=== PATIENT | female | born 1950 | race Caucasian/White ===

== ENCOUNTER 2018-08-16 09:44 | Outpatient (CLI) | payer MEDICARE, BC, SELFPAY ==
[2018-08-16 11:33] LABS: ALT 23 U/L (12-78); AST 22 U/L (15-37); Albumin 3.8 g/dL (3.4-5.0); Alkaline Phosphatase 77 U/L (46-116); Anion Gap 4.3 mmol/L (3-11); BUN 18 mg/dL (7-18); Bilirubin, Total 0.5 mg/dL (0.2-1.0); CO2 33.7 mmol/L (21.0-32.0); CREATININE 0.92 mg/dL (0.55-1.02); Calculated LDL 146; Chloride 102 mmol/L (98-107); Cholesterol 207 mg/dL (50-200); Glucose 92 mg/dL (70-100); HDL Cholesterol 49 mg/dL (40-60); Potassium 4.1 mmol/L (3.5-5.1); Sodium 140 mmol/L (136-145); Total Protein 7.3 g/dL (6.4-8.2); Triglyceride 60 mg/dL (30-150)
== END 2018-08-16 10:04 ==
DX: E78.5 Hyperlipidemia, unspecified (principal); I10 Essential (primary) hypertension
CPT/HCPCS: 36415; 80053; 80061; 83721

== ENCOUNTER 2018-10-29 21:04 | Emergency (ER) | payer MEDICARE, BC, SELFPAY ==
[2018-10-29] VITALS (11 sets, daily range): BP systolic 150–184; BP diastolic 68–89; PULSE 69–104; RESP 9–18; TEMP 36.8–36.9; O2SAT 91–99
--- NOTE | 2018-10-29 21:27 | DI.CT_ITS ---
SYMPTOM/DIAGNOSIS: ALTERED MENTAL STATUS NONCONTRAST HEAD CT: No priors. The ventricles and sulci are consistent with the patient's age. No acute territorial infarct, hemorrhage, midline shift or mass is identified. The ventricles are intact. The basilar cisterns are patent. The visualized paranasal sinuses are clear as are the mastoid air cells. The calvarium is intact. IMPRESSION: No acute intracranial process.
--- NOTE | 2018-10-29 21:31 | ED.GENADUL_ITS ---
Discharge Plan Disposition Patient Disposition: HOME Condition: Stable Discharge Details Chief Complaint: GenMedical Clinical Impression: Acute hypokalemia, Hypertension Primary Care Provider: Lily Mccullough ED Provider: Lewis Garber Home Meds and New Rx's Prescriptions: New potassium chloride 20 mEq tablet extended release 20 meq PO BID 3 Days Qty: 6 RF: 0 Continued hydrochlorothiazide 25 mg tablet 25 mg PO DAILY 90 Days Qty: 90 RF: 4 atenolol 50 mg tablet 75 mg PO DAILY Qty: 135 RF: 4 cholecalciferol (vitamin D3) 1,000 UNIT capsule 1,000 unit PO daily prn RF: 0 calcium carbonate-vitamin D3 1 EACH tablet 1 ea PO DAILY PRN RF: 0 ascorbic acid (vitamin C) [Vitamin C] 500 MG tablet 1,000 mg PO daily prn RF: 0 omega 1-nhb-azm-fish oil 1 EACH capsule 1 ea PO DAILY RF: 0 ibuprofen 600 MG tablet 600 mg PO TID Qty: 90 RF: 0 acetaminophen [Masophen] 500 MG tablet 1,000 mg PO Q8H PRN PRNQty: 120 RF: 0 Discharge Instructions Instructions: Hypokalemia (ED), Hypertension (ED) Additional Instructions: Return immediately to the emergency department for any new or significant worsening of symptoms. Otherwise it is important that you follow-up with your primary care provider preferably next 2 to 3 days for reassessment and recheck of your labs. Please take medications as prescribed. Referrals: Lily Mccullough, [employer] [Primary Care Provider] - 2 days (For recheck of labs, further testing, and reassessment as needed) Discharge Data Discharge Date/Time-TO BE ENTERED AT DEPARTURE: 10/29/18 23:53 Medical Decision Making Patient presenting to the emergency department for chief complaint of altered mental status. Patient states approximately 11 hours prior to arrival she was at work and had a difficult time figuring out a task that she normally does on a daily basis. She states that it took 2 to 3 minutes for her to figure out how to perform the task but she is able to figure this out without any additional assistance. Patient does state that she felt off the remainder of the day but denies any specific other incident. Patient denies any numbness or tingling, focal neurological deficits, denies headache. Patient does report occasional palpitations and history of mitral regurg, hypertension, borderline hyperlipidemia. Patient also does report white coat syndrome and some anxiety. Both of these were also noted by primary care provider on medical record. Patient has mildly hypertensive and tachycardic upon presentation otherwise stable vital signs. Physical exam is unremarkable and shows normal neurological exam, no focal deficits or findings noted. Plan to check labs including urinalysis, EKG for report of palpitations, and head CT for patient feeling neurologically off. Otherwise given that patient denies focal symptoms at this time and is vague do not feel that any emergent treatments are needed at this time. EKG reviewed with attending physician and shows sinus rhythm, rate of 79, mild rate variation but otherwise nonspecific ST depression noted in V3, V4, V5, and V6. Patient denies any chest pain or discomfort. Review of labs show a normal CBC, CMP with potassium of 2.6 and glucose of 111 otherwise nondiagnostic, UA does show moderate amount of blood and trace leukocyte esterase with 20-50 RBCs. Lab reflex culture due to amount of RBCs. Patient states asymptomatic as far as any urinary tract symptoms. Plan to wait on culture. Patient does state that she has had blood in her urine in the past that primary care is been monitoring. Patient denies any recent nausea vomiting diarrhea, food or dietary changes, changes in any of her medications, or rapid fluid loss. She does with further questioning reports some mild muscle cramping specifically in her right foot. I do feel the low potassium may be contributing to some of her symptoms. Given that there is otherwise negative head CT and no other neurological symptoms noted I do not feel that any further work-up for that is needed. Plan to give IV potassium 10 mEq and then p.o. potassium 40 mEq if patient continues to remain stable. Patient was able to tolerate p.o. potassium. Given that patient is otherwise stable I do feel the patient is able to be safely discharged. Patient placed up on p.o. potassium 20 mEq twice daily for the next 2 days and patient placed upon primary care follow-up list. Given that patient is hypertensive, has unclear etiology of hypokalemia and blood in her urine one consideration is primary aldosteronism. I feel that this can be further investigated by primary care and does not need any emergent work-up. Patient has no CVA tenderness denies any pain or discomfort. Return precautions were discussed. After discussion of diagnosis and plan of care patient has no further needs, questions, or concerns and states clear understanding to return to the emergency department for any worsening symptoms. HPI General Mode of arrival: ambulatory . Date/Time Provider Initiated Documentation: 10/29/18 21:06 . Limitations to Documentation: no limitations . Information obtained by: patient and RN notes reviewed . HPI Narrative: Patient presenting the emergency department for chief complaint of altered mental status or mental fog. She states that she had episode this morning around 10 AM that lasted approximately 2 to 3 minutes where she could not figure out how to do 1 of her normal task. She was able to figure out the rest the day felt off mentally. Patient denies pain or discomfort, progressive symptoms, states no treatment prior to arrival, states no relieving or exacerbating factors Related Data Home Medications Medication Instructions Recorded Confirmed ascorbic acid (vitamin C) [Vitamin 1,000 mg PO daily prn 10/07/12 10/30/18 C] calcium carbonate-vitamin D3 1 ea PO DAILY PRN 10/07/12 10/30/18 cholecalciferol (vitamin D3) 1,000 unit PO daily prn 10/07/12 10/30/18 omega 7-ygt-jcn-fish oil 1 ea PO DAILY 06/01/16 10/30/18 acetaminophen [Masophen] 1,000 mg PO Q8H PRN PRN #120 tab 07/20/16 10/30/18 ibuprofen 600 mg PO TID #90 tab 07/20/16 10/30/18 atenolol 50 mg tablet 75 mg PO DAILY #135 tab-cap 07/30/18 10/30/18 hydrochlorothiazide 25 mg tablet 25 mg PO DAILY 90 Days #90 tab 07/30/18 10/30/18 potassium chloride 20 meq PO BID 3 Days #6 tab 10/29/18 10/30/18 Previous Rx's Medication Instructions Recorded acetaminophen [Masophen] 1,000 mg PO Q8H PRN PRN #120 tab 07/20/16 ibuprofen 600 mg PO TID #90 tab 07/20/16 atenolol 50 mg tablet 75 mg PO DAILY #135 tab-cap 07/30/18 hydrochlorothiazide 25 mg tablet 25 mg PO DAILY 90 Days #90 tab 07/30/18 potassium chloride 20 meq PO BID 3 Days #6 tab 10/29/18 Allergies Allergy/AdvReac Type Severity Reaction Status Date / Time No Known Allergies Allergy Verified 10/30/18 13:49 General Stated Complaint: GenMedical SHLOMO: 3 Review of Systems Constitutional Denies body ache(s), Denies chills, Denies fever(s), Denies frequent falls, Denies headache(s), Denies lethargy, Denies malaise and Denies weakness Eyes Denies change in vision ENT Denies dizziness and Denies headache(s) Cardiovascular Denies chest pain, Denies syncope, Reports palpitations (Occasional and intermittent) and Denies dyspnea Respiratory Denies dyspnea Gastrointestinal Denies nausea and Denies vomiting Neurologic Reports as per HPI, Denies dizziness, Denies syncope, Denies frequent falls, Denies headache(s), Denies sensory deficit and Denies weakness Endocrine Reports palpitations (Occasional and intermittent) [facility] Medical History Actinic keratosis (Chronic 11/02/15) Anxiety (Acute) induced by office visits Breast lump (Chronic) Digital mucous cyst (Resolved 06/26/16) Diverticula of colon (Chronic 08/10/14) Essential hypertension (Chronic 04/11/13) white coat hypertension Microscopic hematuria (Chronic 04/11/13) Mitral valve prolapse (Chronic 04/11/13) Osteopenia (Chronic 04/11/13) Pap smear abnormality of cervix (Resolved 04/11/13) Surgical History Cervical Conization/LEEP (~1978) Cystoscopy (~2001) Status post cystoscopy (Resolved) Status post LEEP (loop electrosurgical excision procedure) of cervix (Resolved) Family History Mother , 86 Diabetes Heart disease CHF (congestive heart failure) Stroke Macular degeneration Father Essential hypertension Hyperlipidemia Heart disease valve replacement Prostate cancer Sister Essential hypertension Hyperlipidemia Sister Hyperlipidemia Maternal Grandfather , 66 Lung cancer Paternal Grandfather , 54 Essential hypertension Heart disease Hyperlipidemia Maternal Grandmother , 86 Macular degeneration Colon cancer Paternal Grandmother , 65 Uterine cancer Son Essential hypertension Daughter No problems noted. Grand daughter Leukemia Social History Smoking/Tobacco Use Status: Never Alcohol Intake: current Alcohol Intake frequency: holidays/special occasions only Alcohol type: wine Drug use: Never Substance use type: does not use Caregiver/Support person: No Household members: spouse Housing: house Communication Needs: None Do you need help understanding health information?: Rarely Pets and animals: No Sexually active: Yes Do you think of yourself as: straight/heterosexual Current gender identity: female What is your relationship status?: How often do you talk on the phone with friends or family?: three or more times per week How often do you get together with friends or relatives?: decline to answer How often do you attend rastafari or hinduism services?: decline to answer Do you belong to any clubs or organized social groups?: no Panel score (0-1 are the most socially isolated patients): 2 What type of physical activity do you participate in: walking and swimming Duration: 30-45 minutes/day Frequency: 3-4 times per week Ayse/Baptism: Orthodox Special ayse needs: No Seatbelt use: always Helmet use: No Drive 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 Exam Const General: cooperative, healthy appearing, no acute distress and well groomed Orientation: alert, awake and oriented x3 HENMT Head: normal to inspection Ears: hearing grossly normal bilaterally and TM's normal bilaterally Mouth: oral mucosae normal and moist mucous membranes Throat: posterior oropharynx normal and uvula midline Eyes Visual Hou: normal visual hou by confrontation Alignment and Position: alignment normal Periorbital: periorbital findings normal Eyelids: eyelids normal Sclera: sclerae normal Cornea: corneas normal Pupils: PERRL EOM: EOM intact bilaterally Neck Neck: normal visual inspection, full ROM, no lymphadenopathy and no meningeal signs Resp Effort & Inspection: normal respiratory effort and able to speak in complete sentences Auscultation: clear to auscultation bilaterally Cardio Rate: regular rate Rhythm: regular rhythm Heart Sounds: S1 normal, S2 normal, no click, no gallops, no murmurs and no rubs Back/Spine/Pelvis Back: no CVA tenderness Cervical Spine: cervical ROM normal Neuro General: alert, awake, oriented x3, gait normal, tone normal, moves all extremities, normal light touch, pain and propioception, no meningeal signs, no focal motor deficits, CN's II-XI intact bilaterally and not confused Cognition: normal cognition Speech: speech normal Gait: normal gait Motor: muscle tone normal throughout, strength 5/5 throughout, no pronator drift, no movement abnormalities noted and no fasciculations Sensory Exam: no sensory deficits noted Coordination: [id number] test normal, Romberg test normal, Does not sway with eyes open and rapid alternating movement UE normal Course Vital Signs Temperature 36.8 C 10/29/18 21:08 Pulse 104 H 10/29/18 21:08 Respiratory Rate 18 10/29/18 21:08 Blood Pressure 184/89 H 10/29/18 21:08 Pulse Oximetry 99 10/29/18 21:08 Temperature 36.8 C 10/29/18 21:08 Temperature Source Skin 10/29/18 21:08 Pulse 104 H 10/29/18 21:08 Respiratory Rate 18 10/29/18 21:08 Blood Pressure 184/89 H 10/29/18 21:08 Blood Pressure Position Sitting 10/29/18 21:08 Pulse Oximetry 99 10/29/18 21:08 Oxygen Delivery Method Room Air 10/29/18 21:08 Oxygen Flow Rate 0 10/29/18 21:08 Pain Level 0 10/29/18 21:08
[2018-10-29 21:44] LABS: Bilirubin Negative (Negative); Blood Moderate (Negative); Clarity Clear (Clear); Glucose Negative (Negative); Ketones Negative (Negative); Leukocyte Esterase Trace (Negative); Nitrite Negative (Negative); Urobilinogen 0.2 EU/dL (Up TO 0.2); pH 6.5 (5-8)
[2018-10-29 21:58] LABS: Bacteria Rare HPF (Negative); Casts Negative LPF (Negative); Crystals Negative HPF (Negative); Epithelial Cells Rare HPF (Negative); Mucus Negative (Negative); Other Cells Rare Transitional (Negative); RBC 20-50 (0-2); WBC 0-2 HPF (0-5)
[2018-10-29 21:59] LABS: C & S Indicated? Yes
[2018-10-29 21:59] LABS: Abs Immature Grans 0.01 k/cumm (0.0-0.09); Absolute Basophil Count 0.01 k/cumm (0.0-0.2); Absolute Eosinophil Count 0.02 k/cumm (0.0-0.7); Absolute Lymphocyte Count 1.74 k/cumm (1.2-3.4); Absolute Monocyte Count 0.72 k/cumm (0.11-0.7); Absolute Neutrophil Count 5.61 k/cumm (1.2-6.7); Basophils % 0.1; Eosinophils % 0.2; HCT 36.6 % (36.0-46.0); HGB 12.4 g/dL (12.0-15.5); Immature Grans % 0.1; Lymphocytes % 21.5; Mean Corp. HGB Concentration 33.9 g/dL (32.0-36.0); Mean Corpuscular Hemoglobin 30.8 pg (27.0-33.0); Mean Corpuscular Volume 90.8 fL (80-95); Mean Platelet Volume 9.2 fL (8.0-11.0); Monocytes % 8.9; Neutrophils % 69.2; Platelet Count 304 x1000/uL (130-400); RBC 4.03 m/cumm (4.00-5.20); RBC Distribution Width 13.2 % (11.7-14.6); White Blood Cell Count 8.11 k/cumm (4.4-10.8)
[2018-10-29 22:18] LABS: ALT 23 U/L (14-59); AST 23 U/L (15-37); Albumin 3.9 g/dL (3.4-5.0); Alkaline Phosphatase 70 U/L (46-116); Anion Gap 9.5 mmol/L (3-11); BUN 11 mg/dL (7-18); Bilirubin, Total 0.3 mg/dL (0.2-1.0); CO2 29.5 mmol/L (21.0-32.0); CREATININE 0.88 mg/dL (0.55-1.02); Chloride 103 mmol/L (98-107); Glucose 111 mg/dL (70-100); Magnesium 1.8 mg/dL (1.8-2.4); Sodium 142 mmol/L (136-145); Total Protein 7.7 g/dL (6.4-8.2)
--- NOTE | 2018-10-29 22:19 | DI.VRAD_ITS ---
EXAM: CT Head Without Contrast EXAM DATE/TIME: 10/29/2018 9:31 PM CLINICAL HISTORY: 68 years old, female; Altered mental status/memory loss; Confusion or disorientation TECHNIQUE: Imaging protocol: Computed tomography images of the head without contrast. Radiation optimization: All CT scans at this facility use at least one of these dose optimization techniques: automated exposure control; mA and/or kV adjustment per patient size (includes targeted exams where dose is matched to clinical indication); or iterative reconstruction. COMPARISON: No relevant prior studies available. FINDINGS: Brain: No acute intracranial hemorrhage. There is mild diffuse heterogeneity of the white matter attenuation, consistent with chronic white matter ischemic changes. Mild cerebral atrophy Ventricles: Normal. No ventriculomegaly. Bones/joints: Unremarkable. No acute fracture. Sinuses: Visualized sinuses are unremarkable. No fluid levels. Mastoid air cells: Visualized mastoid air cells are well aerated. No mastoid effusion. Soft tissues: Unremarkable. IMPRESSION: No acute intracranial hemorrhage. Dictated and Authenticated by: Lola Driscoll MD. Ordering:ANSHU Saucedo MD
[2018-10-29 22:26] LABS: Potassium 2.6 mmol/L (3.5-5.1)
[2018-10-29] MEDS: POTASSIUM CHLORIDE 10 MEQ/100 ML BAG 100 MEQ IVPB (22:37)
[2018-10-29] MEDS: Normal Saline Flush 10 ML SYR IVP (22:37)
[2018-10-29] MEDS: Potassium Chloride 10 MEQ CAPCR 40 MEQ PO (23:07)
== END 2018-10-29 23:53 | disposition home or self-care (01) ==
PROVIDERS: Emergency Provider Nurse Practitioner Family
DX: E87.6 Hypokalemia (principal); I10 Essential (primary) hypertension; F41.9 Anxiety disorder, unspecified; R00.2 Palpitations; R41.82 Altered mental status, unspecified
CPT/HCPCS: 36415; 80053; 93005; 96365; 99285; 70450; 81003; 81015; 83735; 85025; 87086; 93010; J3480

== ENCOUNTER 2018-11-01 02:42 | Outpatient (CLI) | payer MEDICARE, BC, SELFPAY ==
[2018-11-01 12:46] LABS: Anion Gap 8.9 mmol/L (3-11); BUN 18 mg/dL (7-18); CO2 29.1 mmol/L (21.0-32.0); CREATININE 0.87 mg/dL (0.55-1.02); Calcium 9.1 mg/dL (8.5-10.1); Chloride 105 mmol/L (98-107); Glucose 96 mg/dL (70-100); Potassium 3.8 mmol/L (3.5-5.1); Sodium 143 mmol/L (136-145)
== END 2018-11-01 03:02 ==
DX: E87.6 Hypokalemia (principal)
CPT/HCPCS: 36415; 80048

== ENCOUNTER 2018-11-08 03:50 | Outpatient (CLI) | payer MEDICARE, BC, SELFPAY ==
[2018-11-08 11:05] LABS: Potassium 3.9 mmol/L (3.5-5.1)
== END 2018-11-08 04:10 ==
DX: E87.6 Hypokalemia (principal)
CPT/HCPCS: 36415; 84132

== ENCOUNTER 2018-11-15 02:16 | Outpatient (CLI) | payer MEDICARE, BC, SELFPAY ==
[2018-11-15 11:29] LABS: Potassium 3.8 mmol/L (3.5-5.1)
== END 2018-11-15 02:36 ==
DX: E87.6 Hypokalemia (principal)
CPT/HCPCS: 36415; 84132

== ENCOUNTER 2018-11-22 03:21 | Outpatient (CLI) | payer MEDICARE, BC, SELFPAY | END 2018-11-22 03:41 | DX: R00.2 Palpitations (principal); I49.1 Atrial premature depolarization; I47.1 Supraventricular tachycardia; R00.1 Bradycardia, unspecified | CPT/HCPCS: 93225 ==

== ENCOUNTER 2018-11-24 12:30 | Outpatient (CLI) | payer MEDICARE, BC, SELFPAY ==
--- NOTE | 2018-11-25 09:45 | HOLTER_ITS ---
DATE OF DICTATION: November 25, 2018 48-HOUR STUDY Baseline rhythm sinus. Very frequent single PAC. 11 bursts of SVT, longest 6-beat duration, fastest 168 bpm. Rare single PVC. One couplet. No VT. Nocturnal heart rates as low as 50-55 bpm, sinus bradycardia. No symptoms. Average heart rate 64 bpm, range 51-103 bpm.
== END 2018-11-24 12:50 ==
DX: R00.2 Palpitations (principal); I49.1 Atrial premature depolarization; I47.1 Supraventricular tachycardia; R00.1 Bradycardia, unspecified
CPT/HCPCS: 93226

== ENCOUNTER 2018-11-25 08:30 | Outpatient (CLI) | payer MEDICARE, BC, SELFPAY | END 2018-11-25 08:50 | PROVIDERS: Visit Provider Internal Medicine Interventional Cardiology | DX: R00.2 Palpitations (principal); I49.1 Atrial premature depolarization; I47.1 Supraventricular tachycardia; R00.1 Bradycardia, unspecified | CPT/HCPCS: 93227 ==

== ENCOUNTER 2018-11-27 01:07 | Outpatient (CLI) | payer MEDICARE, BC, SELFPAY ==
--- NOTE | 2018-11-27 12:15 | MERGE_ITS ---
*[facility]* *[facility]* [address] [place] [address] Date of study: 11/27/2018 Transthoracic Echocardiography M-mode, complete 2D, complete spectral Doppler, and color Doppler *STUDY CONCLUSIONS* Summary: 1. Left ventricle: The cavity size was normal. Wall thickness was normal. Systolic function was normal. The estimated ejection fraction was 55-60%. Wall motion was normal; there were no regional wall motion abnormalities. 2. Mitral valve: Late systolic prolapse, involving the posterior leaflet. There was mild regurgitation. 3. Right ventricle: The cavity size was normal. Wall thickness was normal. Systolic function was normal. *PATIENT PRESENTATION* Height: 165.1cm (65in ) S/D Pressure: 164 / 87 Weight: 68kg (149.7lb ) BSA: 1.78m^2 Test start time: 12:15 PM. Test stop time: 01:00 PM. PERFORMING [facility] CONSULTING Liyl Mccullough ORDERING Lily Mccullough REFERRING Lily Mccullough DRIVER/SALES WORKERS Jackie Miller *PROCEDURE DATA* Procedure information: This study was interpreted by [facility]. Pertinent images and digital data are archived for permanent storage and are available for subsequent review. No prior study was available for comparison. Study status: Routine. Transthoracic echocardiography. M-mode, complete 2D, complete spectral Doppler, and color Doppler. A Transthoracic Echocardiogram was performed. Scanning was performed from the parasternal, apical, subcostal, and suprasternal notch acoustic windows. Images were obtained using an [employer] 2000 cardiac ultrasound machine. Image quality was adequate. Study completion: The patient tolerated the procedure well. History: PMH: Palpitations, MVP, HTN. *CARDIAC ANATOMY* Left ventricle: The cavity size was normal. Wall thickness was normal. Systolic function was normal. The estimated ejection fraction was 55-60%. Wall motion was normal; there were no regional wall motion abnormalities. Some parameters suggest diastolic dysfunction. Aortic valve: Trileaflet; normal thickness leaflets. Mobility was not restricted. Doppler: Transvalvular velocity was within the normal range. There was no stenosis. There was no significant regurgitation. VTI ratio of LVOT to aortic valve: 0.86. Valve area (VTI): 3.1cm^2. Indexed valve area (VTI): 1.7cm^2/m^2. Peak velocity ratio of LVOT to aortic valve: 0.88. Valve area (Vmax): 3.2cm^2. Indexed valve area (Vmax): 1.8cm^2/m^2. Mean velocity ratio of LVOT to aortic valve: 0.76. Valve area (Vmean): 2.7cm^2. Indexed valve area (Vmean): 1.5cm^2/m^2. Mean gradient (S): 4.5mm Hg. Peak gradient (S): 8mm Hg. Aorta: Aortic root: The aortic root was normal in size. Ascending aorta: The ascending aorta was normal in size. Mitral valve: Mildly thickened leaflets. Mobility was not restricted. Late systolic prolapse, involving the posterior leaflet. Doppler: Transvalvular velocity was within the normal range. There was no evidence for stenosis. There was mild regurgitation. Valve area by pressure half-time: 3.5cm^2. Indexed valve area by pressure half-time: 2cm^2/m^2. Peak gradient (D): 2.3mm Hg. Left atrium: The atrium was normal in size. Right ventricle: The cavity size was normal. Wall thickness was normal. Systolic function was normal. Pulmonic valve: The pulmonary valve appears to be grossly normal. Doppler: Transvalvular velocity was within the normal range. There was no evidence for stenosis. There was no significant regurgitation. Peak gradient (S): 2.5mm Hg. Tricuspid valve: Structurally normal valve. Doppler: Transvalvular velocity was within the normal range. There was no evidence for stenosis. There was no significant regurgitation. Pulmonary artery: Pulmonary systolic pressure was within the normal range, in the range of 25mm Hg to 30mm Hg. Right atrium: The atrium was normal in size. Pericardium: There was no pericardial effusion. Systemic veins: Inferior vena cava: The vessel was normal in size. Measurements Left ventricle Value Reference LV ID, ED, PLAX 4.5 cm 3.5 - 6.0 LV ID, ES, PLAX 3.1 cm 2.1 - 4.0 LV PW thickness, ED, PLAX 0.9 cm LV end-diastolic volume, 1-p A2C 95 ml LV ejection fraction, 1-p A2C 54 % LV end-diastolic volume, 1-p A4C 71 ml LV ejection fraction, 1-p A4C 58 % LV e', lateral 0.058 m/sec LV E/e', lateral 13 LV e', medial 0.088 m/sec LV E/e', medial 9 LV e', average 0.073 m/sec LV E/e', average 10 Ventricular septum Value Reference IVS thickness, ED, PLAX 0.9 cm LVOT Value Reference LVOT ID, A-P 2.1 cm LVOT area 3.6 cm^2 LVOT peak velocity, S 1.24 m/sec LVOT mean velocity, S 0.76 m/sec LVOT VTI, S 25.9 cm LVOT peak gradient, S 6.2 mm Hg LVOT mean gradient, S 2.8 mm Hg Stroke volume (SV), LVOT DP 93 ml Stroke index (SV/bsa), LVOT DP 52 ml/m^2 Aortic valve Value Reference Aortic valve peak velocity, S 1.4 m/sec Aortic valve mean velocity, S 1 m/sec Aortic valve VTI, S 30.0 cm Aortic mean gradient, S 4.5 mm Hg Aortic peak gradient, S 8 mm Hg VTI ratio, LVOT/AV 0.86 Aortic valve area, VTI 3.1 cm^2 Velocity ratio, peak, LVOT/AV 0.88 Aortic valve area, peak velocity 3.2 cm^2 Velocity ratio, mean, LVOT/AV 0.76 Aortic valve area, mean velocity 2.7 cm^2 Aortic valve area/bsa, mean velocity 1.5 cm^2/m^2 Aorta Value Reference Aortic root ID, ED 3.2 cm Ascending aorta ID, A-P, S 3.5 cm Left atrium Value Reference LA ID, A-P, ES 3.7 cm LA ID/bsa, A-P 2.1 cm/m^2 <=2.2 LA volume, ES, 2-p 36 ml LA volume/bsa, ES, 2-p 20 ml/m^2 LA/aortic root ratio 1.17 Mitral valve Value Reference Mitral E-wave peak velocity 0.75 m/sec Mitral A-wave peak velocity 0.74 m/sec Mitral deceleration time 215 ms 150 - 230 Mitral pressure half-time 62 ms Mitral peak gradient, D 2.3 mm Hg Mitral E/A ratio, peak 1.02 Mitral valve area, PHT, DP 3.5 cm^2 Tricuspid valve Value Reference Tricuspid regurg peak velocity 2.3 m/sec Tricuspid peak RV-RA gradient 20.8 mm Hg Right atrium Value Reference RA area, ES, A4C 13.5 cm^2 8.3 - 19.5 Pulmonic valve Value Reference Pulmonic peak gradient, S 2.5 mm Hg Legend: (L) and (H) steffanie values outside specified reference range. I have personally reviewed the images and have reviewed and edited the reported findings. Electronically signed by Ramos Massey 11/27/2018 14:08
== END 2018-11-27 01:27 ==
DX: R00.2 Palpitations (principal); I34.1 Nonrheumatic mitral (valve) prolapse; I10 Essential (primary) hypertension
CPT/HCPCS: 93306

== ENCOUNTER 2019-02-21 14:34 | Outpatient (CLI) | payer MEDICARE, BC, SELFPAY ==
[2019-02-21 15:45] LABS: Potassium 3.7 mmol/L (3.5-5.1)
== END 2019-02-21 14:54 ==
PROVIDERS: Visit Provider Nurse Practitioner
DX: R25.2 Cramp and spasm (principal)
CPT/HCPCS: 36415; 84132

== ENCOUNTER 2019-07-24 04:04 | Outpatient (CLI) | payer MEDICARE, BC, SELFPAY ==
[2019-07-24 08:12] LABS: ALT 25 U/L (14-59); AST 24 U/L (15-37); Albumin 3.8 g/dL (3.4-5.0); Alkaline Phosphatase 71 U/L (46-116); Anion Gap 5.1 mmol/L (3-11); BUN 24 mg/dL (7-18); Bilirubin, Total 0.5 mg/dL (0.2-1.0); CO2 32.9 mmol/L (21.0-32.0); CREATININE 1.02 mg/dL (0.55-1.02); Chloride 102 mmol/L (98-107); Estimated GFR 53.73 (mL/min/1.73m2); Glucose 93 mg/dL (74-106); Potassium 3.6 mmol/L (3.5-5.1); Sodium 140 mmol/L (136-145); Total Protein 7.3 g/dL (6.4-8.2)
== END 2019-07-24 04:24 ==
DX: I10 Essential (primary) hypertension (principal)
CPT/HCPCS: 36415; 80053

== ENCOUNTER 2020-08-09 04:09 | Outpatient (CLI) | payer MEDICARE, SELFPAY ==
[2020-08-09 12:36] LABS: ALT 19 U/L (14-59); AST 21 U/L (15-37); Albumin 3.9 g/dL (3.4-5.0); Alkaline Phosphatase 73 U/L (46-116); Anion Gap 8.9 mmol/L (3-11); BUN 20 mg/dL (7-18); Bilirubin, Total 0.6 mg/dL (0.2-1.0); CO2 31.1 mmol/L (21.0-32.0); CREATININE 0.9 mg/dL (0.55-1.02); Calcium 9.3 mg/dL (8.5-10.1); Chloride 102 mmol/L (98-107); Glucose 95 mg/dL (74-106); Potassium 3.3 mmol/L (3.5-5.1); Sodium 142 mmol/L (136-145); Total Protein 7.4 g/dL (6.4-8.2)
== END 2020-08-09 04:10 | disposition home or self-care (01) ==
LOC: LOS 04:10
DX: I10 Essential (primary) hypertension (principal)
CPT/HCPCS: 36415; 80053

== ENCOUNTER 2021-12-22 04:00 | Outpatient (CLI) | payer MEDICARE, SELFPAY ==
[2021-12-22 12:53] LABS: ALT 17 U/L (14-59); AST 23 U/L (15-37); Albumin 4.1 g/dL (3.4-5.0); Alkaline Phosphatase 81 U/L (46-116); Anion Gap 9.8 mmol/L (3-11); BUN 16 mg/dL (7-18); Bilirubin, Total 0.5 mg/dL (0.2-1.0); CO2 30.2 mmol/L (21.0-32.0); Calcium 9.3 mg/dL (8.5-10.1); Chloride 98 mmol/L (98-107); Estimated GFR 60.23 (mL/min/1.73m2); Glucose 98 mg/dL (74-106); Potassium 3.4 mmol/L (3.5-5.1); Sodium 138 mmol/L (136-145); Total Protein 8.3 g/dL (6.4-8.2)
[2021-12-22 12:54] LABS: COMMENT (LAB VIEW ONLY) 26.31 mg/dL; Microalb ug/mg Crea 17.5 ug/mg Cr
== END 2021-12-22 04:01 | disposition home or self-care (01) ==
LOC: LOS 04:00
PROVIDERS: Visit Provider Nurse Practitioner Family
DX: F41.9 Anxiety disorder, unspecified (principal); I10 Essential (primary) hypertension; M20.41 Other hammer toe(s) (acquired), right foot; M21.611 Bunion of right foot
CPT/HCPCS: 36415; 80053; 82043; 82570

== ENCOUNTER 2022-03-07 02:14 | Outpatient (CLI) | payer MEDICARE, SELFPAY ==
--- NOTE | 2022-03-07 07:15 | DI.US_ITS ---
Exam(s) US AXILLA LT EXAM: US AXILLA LT CLINICAL HISTORY: Lump under left arm pit,N63.32 TECHNIQUE: Ultrasound left axilla performed using standard protocol. COMPARISON: None FINDINGS: Apparently this patient developed lumps in her left axilla following recent Covid vaccination There benign-appearing lymph nodes in left axilla measuring up to 1.6 cm benign appearance. No cysts evident in the axilla. We scanned the opposite-right axilla for comparison on this revealed similar benign-appearing lymph n odes. IMPRESSION: No suspicious ultrasound findings in the left axilla. Benign-appearing lymph nodes are noted. Appar ently the patient claims that the lymph nodes have decreased in size since recent physical examinatio n. DATA REPOSITORY:
== END 2022-03-07 02:34 ==
PROVIDERS: PCP Nurse Practitioner Family; Visit Provider Nurse Practitioner Family
DX: N63.32 Unspecified lump in axillary tail of the left breast (principal)
CPT/HCPCS: 76642

== ENCOUNTER → 2022-05-22 07:54 | Outpatient (BNVA) | payer MEDICARE, SELFPAY | PROVIDERS: PCP Nurse Practitioner Family; Referring Provider Nurse Practitioner Family; Visit Provider Student in an Organized Health Care Education/Training Program | DX: M67.442 Ganglion, left hand (principal) | CPT/HCPCS: 99202 ==

== ENCOUNTER 2022-06-13 06:14 | Day surgery (SDC) | payer MEDICARE, SELFPAY ==
[2022-06-13 06:25] VITALS: BP 167/92; PULSE 81; RESP 16; TEMP 36.5; O2SAT 97
--- NOTE | 2022-06-13 07:02 | W.PM.DSUDISC ---
Date of service: 06/13/22 Time of Service: 07:02 Discharge Plan Disposition Patient Disposition: Home Condition: Good Discharge Details Reason For Visit: Left Middle Finger Mucous Cyst Attending Provider: Ralph Benavides Primary Care Provider: Steffen Lieberman Home Meds and New Rx's Prescriptions: Continued atenolol 50 mg tablet 75 mg PO DAILY Qty: 135 4RF Rx Instructions: 75 MG DAILY hydrochlorothiazide 25 mg tablet 25 mg PO DAILY 90 Days Qty: 90 4RF potassium chloride 10 mEq tablet extended release 10 meq PO DAILY Qty: 90 4RF ibuprofen 600 MG tablet 600 mg PO TID Qty: 90 0RF acetaminophen [Masophen] 500 MG tablet 1,000 mg PO Q8H PRN PRNQty: 120 0RF Discharge Instructions Additional Instructions: Discharge Instructions Activity: You should keep the hand elevated as much as possible for the first few days. You may use the other fingers as tolerated but avoid trying to do too much too soon. You may perform light activities as soon as you feel comfortable. Dressing/Cast: Keep the initial dressing on for 48 hours. After that, you may remove the dressing and apply a bandaid or light gauze. You may get the finger wet after 48 hours. Medications: - You should take Tylenol (up to 3000mg daily) and Ibuprofen (up to 2400mg daily) for baseline pain control. - You may also apply ice if needed Follow-up: 7 days Activity:: Elevate Remove Dressings/Wound Care:: 48 hours Shower/Bathe:: 48 hours Diet:: As Tolerated Discharge Orders Discharge Orders: Discharge Order (Routine); Ordered 06/13/22 Ordered By: Ralph Benavides DS: Diagnosis Discharge Diagnosis (1) Digital mucous cyst: Status: Resolved
[2022-06-13] MEDS: Lidocaine 1% Multi-Dose W/EPI 1/100,000 50 ML VIAL (07:34)
[2022-06-13] MEDS: Sodium Bicarbonate 50 MEQ/50 ML VIAL (07:34)
[2022-06-13 07:51] VITALS: BP 162/90; PULSE 64; RESP 16; TEMP 36.1; O2SAT 97
--- NOTE | 2022-06-13 10:24 | ROE_ITS ---
Date of service: 06/13/22 Time of Service: 07:45 Operative Note Operative Note DATE OF PROCEDURE: 06/13/22 POST-OP DIAGNOSIS: same PROCEDURE: Mucous Cyst Excision - Left Middle Finger SURGEON: Ralph Benavides ANESTHESIA TYPE: Local By Surgeon Refer to Anesthesia Record ESTIMATED BLOOD LOSS: 5 PATHOLOGY: none sent COMPLICATIONS: None Patient was transported to: same day Patient's condition: stable Indications: I have seen Ashtyn in clinic for symptoms of a digital mucous cyst. The mass persisted and caused pain to direct contact and with use. The diagnosis of a m ucous cyst was made. The symptoms had not responded to conservative measures. I discussed cyst excision with the patient. I reviewed the risks of the procedure to include, but not limited to, bleeding, infection, pain, stiffness, recurrence, damage to nerves or vessels. Despite these risks, the patient elected to proceed. Findings: There was a cyst of the distal phalanx, arising from the DIP joint. The cyst and its capsule was removed and an arthrotomy at the cyst location performed. Procedure Description: Ashtyn was greeted in the preoperative holding area where the correct side was identified and marked. The consent was reviewed with the patient and signed. All questions were answered. She was taken back to the operating room. The patient was placed into the supine position on the operating room table with the left arm on an arm board. All bony prominences were well padded. No prophylactic antibiotics were administered since this was a clean, elective hand surgical case. The left arm was then prepped with Chloraprep and draped in a standard fashion with stockinette and extremity drape. A timeout to confirm correct identity, side and site, procedure, allergies, anesthesia, and medical concerns was performed. A digital block was then performed using 1% lidocaine with epinephrine and buffered with sodium bicarbonate. This was allowed time to set up completely and was tested before proceeding with the case. A longitudinal incision was then made overlying the cyst. The skin was incised sharply. Full-thickness flaps were then elevated to expose the cyst. The cyst capsule was then removed with a rongeur and followed back towards the DIP joint. Using the rongeur I was able to penetrate into the DIP joint creating a small arthrotomy from the origin of the mucous cyst. The finger was irrigated and once again checked to make sure that all components of the cyst were removed. The skin was then closed using a #4-0 nylon in interrupted fashion. The finger was dressed with Xeroform, 4 x 4, conform dressing. The patient tolerated the procedure well and was returned to the Same Day Surgery area in a stable condition suffering no known complication.
== END 2022-06-13 08:14 | disposition home or self-care (01) ==
PROVIDERS: PCP Nurse Practitioner Family; Visit Provider Student in an Organized Health Care Education/Training Program
PROC: (CPT 26160; principal; 2022-06-13 07:30)
DX: M67.442 Ganglion, left hand (principal)
CPT/HCPCS: 26160

== ENCOUNTER → 2022-06-22 07:55 | Outpatient (BNVA) | payer MEDICARE, SELFPAY | PROVIDERS: PCP Nurse Practitioner Family; Referring Provider Nurse Practitioner Family | DX: Z47.89 Encounter for other orthopedic aftercare (principal); R20.0 Anesthesia of skin ==

== ENCOUNTER 2022-12-20 04:22 | Outpatient (CLI) | payer MEDICARE, SELFPAY ==
[2022-12-20 12:14] LABS: Bilirubin Negative (Negative); Blood Moderate (Negative); Clarity Clear (Clear); Glucose Negative (Negative); Ketones Negative (Negative); Leukocyte Esterase Negative (Negative); Nitrite Negative (Negative); Specific Gravity 1.015 (1.005-1.025); Urobilinogen 0.2 mg/dL (Up to 0.2)
[2022-12-20 12:20] LABS: Bacteria Negative HPF (Negative); C & S Indicated? No; Casts Negative LPF (Negative); Crystals Negative HPF (Negative); Epithelial Cells Rare HPF (Negative); Mucus Negative (Negative); WBC Negative HPF (0-5)
[2022-12-20 12:32] LABS: ALT 23 U/L (14-59); AST 23 U/L (15-37); Alkaline Phosphatase 87 U/L (46-116); Anion Gap 8.1 mmol/L (3-11); BUN 19 mg/dL (7-18); Bilirubin, Total 0.5 mg/dL (0.2-1.0); CO2 29.9 mmol/L (21.0-32.0); Calcium 9.6 mg/dL (8.5-10.1); Calculated LDL 167 mg/dL (<100); Chloride 101 mmol/L (98-107); Cholesterol 243 mg/dL (<200); Estimated GFR 59.86 (mL/min/1.73m2); Glucose 90 mg/dL (74-106); HDL Cholesterol 61 mg/dL (40-60); Potassium 3.3 mmol/L (3.5-5.1); Sodium 139 mmol/L (136-145); Total Protein 8.2 g/dL (6.4-8.2); Triglyceride 76 mg/dL (<150)
== END 2022-12-20 04:23 | disposition home or self-care (01) ==
LOC: LOS 04:23
PROVIDERS: PCP Nurse Practitioner Family; Visit Provider Nurse Practitioner Family
DX: I10 Essential (primary) hypertension (principal); Z13.220 Encounter for screening for lipoid disorders; R31.29 Other microscopic hematuria
CPT/HCPCS: 36415; 80053; 80061; 81003; 81015

== ENCOUNTER 2023-03-14 04:21 | Outpatient (CLI) | payer MEDICARE, SELFPAY ==
[2023-03-14 12:49] LABS: ALT 26 U/L (14-59); AST 24 U/L (15-37); Albumin 3.9 g/dL (3.4-5.0); Alkaline Phosphatase 69 U/L (46-116); Anion Gap 4.5 mmol/L (3-11); BUN 21 mg/dL (7-18); Bilirubin, Total 0.5 mg/dL (0.2-1.0); CO2 30.5 mmol/L (21.0-32.0); Calcium 9.4 mg/dL (8.5-10.1); Calculated LDL 78 mg/dL (<100); Chloride 103 mmol/L (98-107); Cholesterol 153 mg/dL (<200); Estimated GFR 59.86 (mL/min/1.73m2); Glucose 91 mg/dL (74-106); HDL Cholesterol 62 mg/dL (40-60); Potassium 3.5 mmol/L (3.5-5.1); Sodium 138 mmol/L (136-145); Total Protein 7.7 g/dL (6.4-8.2); Triglyceride 69 mg/dL (<150)
== END 2023-03-14 04:22 | disposition home or self-care (01) ==
LOC: LOS 04:21
PROVIDERS: PCP Nurse Practitioner Family; Visit Provider Nurse Practitioner Family
DX: E78.5 Hyperlipidemia, unspecified (principal)
CPT/HCPCS: 36415; 80053; 80061

== ENCOUNTER 2024-05-22 01:33 | Outpatient (CLI) | payer MEDICARE, SELFPAY ==
[2024-05-22 12:28] LABS: ALT 28 U/L (14-59); AST 25 U/L (15-37); Albumin 3.9 g/dL (3.4-5.0); Alkaline Phosphatase 87 U/L (46-116); Anion Gap 6.2 mmol/L (3-11); BUN 19 mg/dL (7-18); Bilirubin, Total 0.5 mg/dL (0.2-1.0); CO2 31.8 mmol/L (21.0-32.0); Calcium 9.3 mg/dL (8.5-10.1); Calculated LDL 74 mg/dL (<100); Chloride 105 mmol/L (98-107); Cholesterol 148 mg/dL (<200); Estimated GFR 59.12 (mL/min/1.73m2); Glucose 82 mg/dL (74-106); HDL Cholesterol 63 mg/dL (>or=50); Potassium 3.8 mmol/L (3.5-5.1); Sodium 143 mmol/L (136-145); Total Protein 7.7 g/dL (6.4-8.2); Triglyceride 57 mg/dL (<150)
== END 2024-05-22 01:34 | disposition home or self-care (01) ==
LOC: LOS 01:33
PROVIDERS: PCP Nurse Practitioner Family; Visit Provider Nurse Practitioner Family
DX: E78.5 Hyperlipidemia, unspecified (principal)
CPT/HCPCS: 36415; 80053; 80061

== ENCOUNTER 2024-08-01 17:11 | Outpatient (REF) | payer MEDICARE, SELFPAY ==
[2024-08-01 16:36] LABS: Bilirubin Negative (Negative); Blood Large (Negative); Clarity Cloudy (Clear); Glucose Negative (Negative); Ketones Negative (Negative); Leukocyte Esterase Moderate (Negative); Nitrite Positive (Negative); Urobilinogen 0.2 mg/dL (Up to 0.2)
[2024-08-01 16:56] LABS: RBC >50 HPF (0-2); WBC >50 HPF (0-5)
[2024-08-01 16:57] LABS: C & S Indicated? Yes
== END 2024-08-01 17:12 | disposition home or self-care (01) ==
LOC: LBN 17:11
PROVIDERS: PCP Nurse Practitioner Family; Visit Provider Physician Assistant
DX: R30.0 Dysuria (principal)
CPT/HCPCS: 87077; 81003; 81015; 87086; 87186

== ENCOUNTER 2024-10-02 11:38 | Observation (INO) | payer MEDICARE, SELFPAY ==
[2024-10-02 11:44] VITALS: BP 173/80; PULSE 76; RESP 16; TEMP 36.7; O2SAT 96
--- NOTE | 2024-10-02 12:03 | W.ED.GENAD ---
Discharge Plan Discharge Details Chief Complaint: Dizzy/Sync Primary Care Provider: Steffen Lieberman ED Provider: Melo Beasley Home Meds and New Rx's Prescriptions: No Action rosuvastatin 10 mg tablet 10 mg PO DAILY Qty: 90 4RF potassium chloride 20 mEq tablet extended release 20 meq PO DAILY Qty: 90 4RF ibuprofen 600 mg tablet 600 mg PO PRN acetaminophen [Masophen] 500 mg tablet 1,000 mg PO Q8H PRN PRN (Reason: pain) Qty: 120 0RF hydrochlorothiazide 25 mg tablet See Rx Instructions .ROUTE .COMPLEX Qty: 90 4RF Dose Instruction: TAKE 1 TABLET BY MOUTH DAILY Rx Instructions: TAKE 1 TABLET BY MOUTH DAILY atenolol 50 mg tablet See Rx Instructions .ROUTE .COMPLEX Qty: 135 4RF Dose Instruction: TAKE 1 AND 1/2 TABLETS BY MOUTH DAILY Rx Instructions: TAKE 1 AND 1/2 TABLETS BY MOUTH DAILY HPI General Date/Time Provider Initiated Documentation: 10/02/24 11:57. HPI Narrative: 74 year-old female presents to ED today by POV/ambulating with unsteady gait with a chief complaint of noticed veering to the right and vertigo last night when she got up to go to the bathroom around 0300- went to bed around 2300. Quality described as vertiginous feeling, and that she is very unsteady on her feet constantly veering off unsteadily to the R, no radiation to visual changes, slurred speech, chest pain, palpitations, tinnitus, shortness of breath, near syncope, vomiting. Severity is described as severe. Palliating factors include nothing specific- was still present when she awoke this morning. Provoking factors include nothing specific. Events leading up to the incident/Associated Symptoms: Patient denies cardiac history, denies atrial fibrillation, denies high cholesterol but does take low-dose statin. Patient not anticoagulated. Related Data Home Medications ?Medication ?Instructions ?Recorded ?Confirmed ibuprofen 600 mg tablet 600 mg PO PRN 12/27/22 10/02/24 acetaminophen 500 mg tablet 1,000 mg (2 x 500 mg) PO Q8H PRN 05/08/23 10/02/24 (Masophen) PRN pain #120 tabs atenolol 50 mg tablet See Rx Instructions .Route 08/23/23 10/02/24 .COMPLEX #135 tabs hydrochlorothiazide 25 mg tablet See Rx Instructions .Route 08/23/23 10/02/24 .COMPLEX #90 tabs potassium chloride 20 mEq 20 meq PO DAILY #90 tabs 01/02/24 10/02/24 tablet,extended release rosuvastatin 10 mg tablet 10 mg PO DAILY #90 tabs 01/02/24 10/02/24 Previous Rx's ?Medication ?Instructions ?Recorded acetaminophen 500 mg tablet 1,000 mg (2 x 500 mg) PO Q8H PRN 05/08/23 (Masophen) PRN pain #120 tabs atenolol 50 mg tablet See Rx Instructions .Route 08/23/23 .COMPLEX #135 tabs hydrochlorothiazide 25 mg tablet See Rx Instructions .Route 08/23/23 .COMPLEX #90 tabs potassium chloride 20 mEq 20 meq PO DAILY #90 tabs 01/02/24 tablet,extended release rosuvastatin 10 mg tablet 10 mg PO DAILY #90 tabs 01/02/24 Allergies Allergy/AdvReac Type Severity Reaction Status Date / Time No Known Allergies Allergy Verified 10/02/24 11:50 General Stated Complaint: Dizzy/Sync SHLOMO: 3 Review of Systems All systems reviewed & are unremarkable except as noted in HPI and below Exam Narrative Exam Narrative: GENERAL APPEARANCE: Well-nourished, non-toxic, awake and alert, atraumatic, no acute distress. SKIN: Warm, pink, dry, intact, without rashes/lesions/ulcerations. HEAD: Normocephalic, atraumatic, normal hair distribution for gender/age. EYES: Normal conjunctiva, no exudates on lids/lashes. ENT: Nares patent, no circumoral cyanosis, no facial swelling NECK: Supple, trachea midline, painless cervical ROM. LUNGS/CHEST: Lungs CTA bilaterally, non-labored respirations, normal A/P diameter, symmetrical expansion, no chest wall deformity HEART (CV/PV): Regular rate and rhythm without murmur, no peripheral edema, no JVD. ABDOMEN: Soft, non-distended, no guarding. MSK: Normal ROM, no swelling/deformity to bilateral UEs or LEs, moving all extremities without weakness, no cyanosis, spine midline without tenderness, normal curvature. NEURO: Mental Status AAOx4 - alert to person, place, time, events No facial droop, no forehead involvement, questionable few misses with FNF both UEs Motor: No focal weakness - strength 5/5 in bilateral UEs and LEs, proximal and distal, symmetric. Sensory: sensation intact to light touch globally. Gait ataxic, veers to R side, L side with tip-toe, Romberg present PSYCH: euthymic, cooperative, pleasant, appropriate speech Course Vital Signs Vital signs: Vital Signs Temperature 36.7 C 10/02/24 11:44 Pulse 76 10/02/24 11:44 Respiratory Rate 16 10/02/24 11:44 Blood Pressure 173/80 H 10/02/24 11:44 Pulse Oximetry 96 10/02/24 11:44 Temperature 36.7 C 10/02/24 11:44 Pulse 76 10/02/24 11:44 Respiratory Rate 16 10/02/24 11:44 Blood Pressure 173/80 H 10/02/24 11:44 Blood Pressure Position Sitting 10/02/24 11:44 Pulse Oximetry 96 10/02/24 11:44 Oxygen Delivery Method Room Air 10/02/24 11:44 Oxygen Flow Rate 0 10/02/24 11:44 Medical Decision Making This dictation utilizes [id number] dictation software and may contain unedited grammatical errors. 74 year-old female presents to ED today by POV/ambulating with unsteady gait with a chief complaint of noticed veering to the right and vertigo last night when she got up to go to the bathroom around 0300- went to bed around 2300. Quality described as vertiginous feeling, and that she is very unsteady on her feet constantly veering off unsteadily to the R, no radiation to visual changes, slurred speech, chest pain, palpitations, tinnitus, shortness of breath, near syncope, vomiting. Severity is described as severe. Palliating factors include nothing specific- was still present when she awoke this morning. Provoking factors include nothing specific. Events leading up to the incident/Associated Symptoms: Patient denies cardiac history, denies atrial fibrillation, denies high cholesterol but does take low-dose statin. Patients' medical history: Mitral regurgitation, hypertension, hyperlipidemia. Family and social history: Eats healthy, exercises regularly, no smoking, denies acute alcohol use. Pertinent exam findings / vital signs include ataxic with gait unsteady to the right, when tiptoeing she did veer off to the left, Romberg present, question if you miss is on [id number] for dysmetria of both upper extremities. NIH: 2 Differential / pathologies of concern include CVA, vertebral dissection, mass, BPPV, ICH, electrolyte abnormality, atypical GCA. Diagnostic studies of: -CTA Brain & Neck, EKG, x-ray chest, CBC, CMP, CRP/ESR, TSH, UA, troponin, magnesium. - CTA shows no acute pathology, no vertebral dissection - X-ray chest shows no acute pathology - CBC shows no acute abnormality, no signs of infection - Inflammatory markers negative - CMP shows no actionable abnormality, no electrolyte abnormality - Troponin negative - Magnesium negative - TSH is severely elevated at 17.25 with a normal T4 - UA shows moderate blood and 3-5 WBCs on micro culture pending Interventions of: - [facility] [place], will likely recommend MRI and workup, patient pending likely admission at signout to Valerie Conn PA-C. ED Course/Assessment/Plan: 74-year-old female presents with ataxia, questionable dysmetria and Romberg sign present for an NIH of definitively 2, last known well at 2300 last night. CTA is negative, x-ray of the chest is negative, labs show no acute abnormality save for significantly elevated TSH of which there are no priors, she is signed out to oncoming provider pending teleneurology evaluation. Disposition of Ataxia. Patient verbalized understanding of the plan and return to ED criteria and engaged in shared decision making. Medical Records Medical records reviewed: Yes I reviewed the patient's medical records. Imaging Data Radiologic Study: Attestation: I personally reviewed and interpreted this imaging study as follows: Imaging: CT Scan Radiologist's impression: EXAM: CT BRAIN NECK CTA CLINICAL HISTORY: vertigo, ataxia; last well 2300 yest. TECHNIQUE: Imaging Protocol: Axial CT angiography was performed with multi-slice acquisition and multi-planar and/or 3D reconstructions. CONTRAST MATERIAL: Intravenous: Omnipaque 350 Contrast volume:70 mL COMPARISON: CT CT HEAD WO from 10/29/2018 FINDINGS: CTA Neck W: Aortic arch anatomy: The aortic arch anatomy is conventional and there is no significant stenosis at the origin of the great vessels off of the aortic arch. No intimal flap evident. Anterior circulation: Both common carotid arteries ascend with normal luminal diameters. At the level the carotid bulbs and proximal internal carotid arteries there is minimal plaque without hemodynamically significant stenosis evident. V internal carotid arteries in the upper neck are nicely patent. Also patent within the skull base-carotid canals and cavernous sinuses. Posterior circulation: Both vertebral arteries originate in conventional fashion off of the subclavian arteries and there is no obvious stenosis at the origin of the vertebral arteries. Both vertebral arteries exhibit normal luminal diameters within the foramen transversarium. The left vertebral artery is dominant. No evidence of vertebral artery thrombosis nor dissection. At the skull base the vertebral artery is formed by contribution from the dominant left vertebral artery and significantly thinner internal aspect of the right vertebral artery. CTA Brain W: Anterior circulation: Both internal carotid arteries are patent in the skull base-carotid canals as well as within the cavernous sinuses. The supraclinoid aspects of the ICAs are patent. Both A1 segments are patent as are the anterior cerebral arteries and there is no evidence of aneurysm at the level of the anterior communicating artery. Both middle cerebral arteries are patent with no evidence of significant stenosis nor intraluminal thrombus. There also no aneurysms of these vessels. Posterior circulation: Basilar artery ascends without significant stenosis. Distally gives off patent thin superior cerebellar arteries. Above this level it terminates as patent right posterior cerebral artery. The left P1 segment is thin; the left posterior cerebral artery is predominantly supplied by a posterior communicating artery on the left side of the [id number]. There is no evidence of aneurysm at the tip of the basilar artery nor elsewhere in the [id number]-[id number]-Clwlfv. CT BRAIN: There is no evidence of intracranial hemorrhage, mass effect, or shift of midline structures. There are no extra-axial fluid collections. Ventricles are not enlarged or shifted. There are no ring enhancing lesions in the brain and no abnormal meningeal enhancement. IMPRESSION: 1. Patent carotid arteries in the neck. No hemodynamically significant stenosis. 2. Patent vertebral arteries. 3. Patent intracranial arteries. 4. No significant intracranial findings. No ring enhancing lesions in the brain. No abnormal meningeal enhancement. No aneurysms. Radiologic Study #2: Attestation: I personally reviewed and interpreted this imaging study as follows: Imaging: X-Ray Radiologist's impression: EXAM: XR CHEST 2V PA LATERAL CLINICAL HISTORY: vertigo; dizziness TECHNIQUE: 2D digital imaging was performed. Two views. COMPARISON: No exams were available for comparison FINDINGS: HEART: Normal size. Aorta: Not dilated. PULMONARY VASCULATURE: Normal. MEDIASTINUM: Unremarkable. LUNGS: Clear. PLEURAL SPACE: No pleural effusion or pneumothorax. BONE:Unremarkable for age. SOFT TISSUES: Unremarkable. IMPRESSION: No acute abnormality. Lab Data Lab results reviewed: Yes I reviewed the patient's lab results. Labs: Laboratory Tests Range/Units 10/02/24 10/02/24 12:49 13:16 WBC (4.4-10.8) 10^3/uL 6.86 RBC (3.93-5.22) 10^6/uL 4.35 Hgb (11.2-15.7) g/dL 13.1 Hct (36.0-46.0) % 39.1 MCV (80-95) fL 90 MCH (27.0-33.0) pg 30.1 MCHC (32.0-36.0) % 33.5 RDW (11.7-14.6) % 12.7 Plt Count (130-400) 10^3/uL 288 MPV (8.0-11.0) fL 9.0 Immature Gran % % 0.1 Neutrophils % % 70.0 Lymphocytes % % 21.3 Monocytes % % 7.6 Eosinophils % % 0.6 Basophils % % 0.4 Nucleated RBC % (0.0-0.3) % 0.0 Absolute Neutrophils (1.2-6.7) 10^3/uL 4.80 Absolute Lymphocytes (1.2-3.4) 10^3/uL 1.46 Absolute Monocytes (0.1-0.8) 10^3/uL 0.52 Absolute Eosinophils (0.0-0.7) 10^3/uL 0.04 Absolute Basophils (0.0-0.2) 10^3/uL 0.03 ESR (0-30) mm/hr 12 Sodium (136-145) mmol/L 139 Potassium (3.5-5.1) mmol/L 3.7 Chloride (98-107) mmol/L 101 Carbon Dioxide (21.0-32.0) mmol/L 31.1 Anion Gap (3-11) mmol/L 6.9 BUN (7-18) mg/dL 17 Creatinine (0.55-1.02) mg/dL 1.0 Est GFR (CKD-EPI 2020) (mL/min/1.73m2) 59.12 Glucose (74-106) mg/dL 107 H Calcium (8.5-10.1) mg/dL 9.6 Magnesium (1.8-2.4) mg/dL 2.1 Total Bilirubin (0.2-1.0) mg/dL 0.5 AST (15-37) U/L 25 ALT (14-59) U/L 23 Alkaline Phosphatase (46-116) U/L 91 Troponin I (<or=51) ng/L 14 C-Reactive Protein (<or=0.5) mg/dL < 0.50 Total Protein (6.4-8.2) g/dL 8.2 Albumin (3.4-5.0) g/dL 4.3 TSH (0.36-3.74) uIU/mL 17.25 H Free T4 (0.76-1.46) ng/dL 0.77 Urine Color (Yellow) Yellow Urine Clarity (Clear) Clear Urine pH (5-8) 7.0 Ur Specific [place] (1.005-1.025) 1.015 Urine Protein (Neg-Trace) mg/dL Negative Urine Ketones (Negative) mg/dL Negative Urine Blood (Negative) Moderate H Urine Nitrite (Negative) Negative Urine Bilirubin (Negative) Negative Urine Urobilinogen (Up to 0.2) mg/dL 0.2 Ur Leukocyte Esterase (Negative) Negative Urine RBC (0-2) HPF 10-20 H Urine WBC (0-5) HPF 0-2 Ur Epithelial Cells (Negative) HPF Rare Urine Crystals (Negative) HPF Negative Urine Bacteria (Negative) HPF Negative Urine Casts (Negative) LPF Negative Urine Mucus (Negative) Negative Ur Culture Indicated? No Urine Glucose (Negative) mg/dL Negative PFSH All Active Problems Skin lesions, generalized (Acute) Hyperlipidemia (Acute) 12/27/22 10-year ASCD risk 15.5% pre-statin Actinic keratosis (Chronic 11/02/15) Anxiety (Acute) induced by office visits Diverticula of colon (Chronic 08/10/14) Essential hypertension (Chronic 04/11/13) white coat hypertension Mitral valve prolapse (Chronic 04/11/13) Osteopenia (Chronic 04/11/13) Microscopic hematuria (Chronic 04/11/13) Hammer toe of right foot (Acute) Bunion of great toe of right foot (Acute) Callus of foot (Acute) Localized swelling, mass and lump, upper limb, bilateral (Acute) Soft tissue calcification (Acute) Unspecified lump in axillary tail of the left breast (Acute) Medical History Breast pain, left Axillary fullness Mental status change resolved Hypokalemia Breast lump Surgical History H/O colonoscopy Ganglion cyst of finger of left hand Left Index Finger S/P Excision: 06/13/2022 Digital mucous cyst (06/26/16) Left Middle Finger S/P Excision: 07/21/2016 Cystoscopy (~2001) Cervical Conization/LEEP (~1978) Family History Mother , 86 Diabetes Heart disease CHF (congestive heart failure) Stroke Macular degeneration Father , age 90 Essential hypertension Hyperlipidemia Heart disease valve replacement Prostate cancer Sister Essential hypertension Hyperlipidemia Sister Hyperlipidemia Hypertension Maternal Grandfather , 66 Lung cancer Paternal Grandfather , 54 Essential hypertension Heart disease Hyperlipidemia Maternal Grandmother , 86 Macular degeneration Colon cancer Paternal Grandmother , 65 Uterine cancer Son Essential hypertension Daughter No problems noted. Grand daughter Leukemia Social History Smoking/Tobacco Use Status: Never Smoking risk assessment performed?: Yes Alcohol Intake: current Alcohol Intake frequency: holidays/special occasions only Alcohol type: wine Drug use: Never Substance use type: does not use Adopted: No Caregiver/Support person: No Foster care: No Household members: spouse Housing: house Number of Children: 2 number of grandchildren: 4 Communication Needs: Corrective Lenses Education Level: vocational Do you need help understanding health information?: Never current occupation: retired Pets and animals: No Sexually active: Yes Do you think of yourself as: straight/heterosexual Current gender identity: female What is your relationship status?: How often do you talk on the phone with friends or family?: three or more times per week How often do you get together with friends or relatives?: twice per week How often do you attend buddhist or confucianism services?: decline to answer Do you belong to any clubs or organized social groups?: no Panel score (0-1 are the most socially isolated patients): 2 What type of physical activity do you participate in: walking, swimming and other Details: gardening Duration: 15-30 minutes/day Frequency: 5-6 times per week Ayse/Alevism: Orthodoxy Special ayse needs: No Agree to transfusion: Yes Seatbelt use: always Helmet use: No Drive intox 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
--- NOTE | 2024-10-02 12:15 | DI.RAD_ITS ---
Exam(s) XR CHEST 2V PA LATERAL EXAM: XR CHEST 2V PA LATERAL CLINICAL HISTORY: vertigo; dizziness TECHNIQUE: 2D digital imaging was performed. Two views. COMPARISON: No exams were available for comparison FINDINGS: HEART: Normal size. Aorta: Not dilated. PULMONARY VASCULATURE: Normal. MEDIASTINUM: Unremarkable. LUNGS: Clear. PLEURAL SPACE: No pleural effusion or pneumothorax. BONE:Unremarkable for age. SOFT TISSUES: Unremarkable. IMPRESSION: No acute abnormality. DATA REPOSITORY: RADIATION DOSE DELIVERED:
--- NOTE | 2024-10-02 12:15 | DI.CT_ITS ---
Exam(s) CT BRAIN NECK CTA EXAM: CT BRAIN NECK CTA CLINICAL HISTORY: vertigo, ataxia; last well 2300 yest. TECHNIQUE: Imaging Protocol: Axial CT angiography was performed with multi- slice acquisition and multi-planar and/or 3D reconstructions. CONTRAST MATERIAL: Intravenous: Omnipaque 350 Contrast volume:70 mL COMPARISON: CT CT HEAD WO from 10/29/2018 FINDINGS: CTA Neck W: Aortic arch anatomy: The aortic arch anatomy is conventional and there is no significant stenosis at the origin of the great vessels off of the aortic arch. No intimal flap evident. Anterior circulation: Both common carotid arteries ascend with normal luminal diameters. At the level the carotid bulbs and proximal internal carotid arteries there is minimal plaque without hemodynamically significant stenosis evident. V internal carotid arteries in the upper neck are nicely patent. Also patent within the skull base-carotid canals and cavernous sinuses. Posterior circulation: Both vertebral arteries originate in conventional fashion off of the subclavian arteries and there is no obvious stenosis at the origin of the vertebral arteries. Both vertebral arteries exhibit normal luminal diameters within the foramen transversarium. The left vertebral artery is dominant. No evidence of vertebral artery thrombosis nor dissection. At the skull base the vertebral artery is formed by contribution from the dominant left vertebral artery and significantly thinner internal aspect of the right vertebral artery. CTA Brain W: Anterior circulation: Both internal carotid arteries are patent in the skull base-carotid canals as well as within the cavernous sinuses. The supraclinoid aspects of the ICAs are patent. Both A1 segments are patent as are the anterior cerebral arteries and there is no evidence of aneurysm at the level of the anterior communicating artery. Both middle cerebral arteries are patent with no evidence of significant stenosis nor intraluminal thrombus. There also no aneurysms of these vessels. Posterior circulation: Basilar artery ascends without significant stenosis. Distally gives off patent thin superior cerebellar arteries. Above this level it terminates as patent right posterior cerebral artery. The left P1 segment is thin; the left posterior cerebral artery is predominantly supplied by a posterior communicating artery on the left side of the piijox-it-Ffdzim. There is no evidence of aneurysm at the tip of the basilar artery nor elsewhere in the upjuty-im-Kzfpyo. CT BRAIN: There is no evidence of intracranial hemorrhage, mass effect, or shift of midline structures. There are no extra-axial fluid collections. Ventricles are not enlarged or shifted. There are no ring enhancing lesions in the brain and no abnormal meningeal enhancement. IMPRESSION: 1. Patent carotid arteries in the neck. No hemodynamically significant stenosis. 2. Patent vertebral arteries. 3. Patent intracranial arteries. 4. No significant intracranial findings. No ring enhancing lesions in the brain. No abnormal meningeal enhancement. No aneurysms. Findings called by myself to ER provider 10/02/2024 at 2:30 p.m. RADIATION DOSE DELIVERED: 2,156.73mGy.cm Total DLP DATA REPOSITORY: All CT scans at this facility are submitted to the National Radiology Data Registry (NRDR) Dose Index Registry (DIR) with the [employer] (ACR). RADIATION OPTIMIZATION: All CT scans at this facility use at least one of these dose optimization techniques: automated exposure control; mA and/or kV adjustment per patient size (includes targeted exams where dose is matched to clinical indication); or iterative reconstruction.
--- NOTE | 2024-10-02 12:15 | RT.EKG_ITS ---
APPROVED REPORT Exam: Resting ECG Reason for Exam: baseline/screening Patient Location: E HR:65 bpm ECG Measurements Heart Rate 65 AXIS MI 199 P 41 QRSd 81 QRS -5 QT 452 T 7 QTc 457 Conclusion Incomplete analysis due to missing data in precordial lead(s) Sinus rhythm...normal P axis, V-rate 60- 99 Ventricular premature complex...V complex w/ short R-R interval
[2024-10-02 12:55] VITALS: RESP 16
[2024-10-02 12:57] LABS: Abs Immature Grans 0.01 10^3/uL (0.0-0.06); HCT 39.1 % (36.0-46.0); HGB 13.1 g/dL (11.2-15.7); Immature Grans % 0.1 %; MCH 30.1 pg (27.0-33.0); MCHC 33.5 % (32.0-36.0); MCV 90 fL (80-95); MPV 9.0 fL (8.0-11.0); Platelet Count 288 10^3/uL (130-400); RBC 4.35 10^6/uL (3.93-5.22); RDW 12.7 % (11.7-14.6); RDW-SD 42.1 fL; WBC 6.86 10^3/uL (4.4-10.8)
[2024-10-02 13:00] LABS: ESR 12 mm/hr (0-30)
--- NOTE | 2024-10-02 13:00 | RT.EKG_ITS ---
APPROVED REPORT Exam: Resting ECG Reason for Exam: repeat Patient Location: E HR:66 bpm ECG Measurements Heart Rate 66 AXIS HI 193 P 42 QRSd 84 QRS -2 QT 451 T 2 QTc 473 Conclusion Sinus rhythm...normal P axis, V-rate 60- 99
[2024-10-02 13:29] LABS: ALT 23 U/L (14-59); AST 25 U/L (15-37); Albumin 4.3 g/dL (3.4-5.0); Alkaline Phosphatase 91 U/L (46-116); Anion Gap 6.9 mmol/L (3-11); BUN 17 mg/dL (7-18); Bilirubin, Total 0.5 mg/dL (0.2-1.0); CO2 31.1 mmol/L (21.0-32.0); Calcium 9.6 mg/dL (8.5-10.1); Chloride 101 mmol/L (98-107); Estimated GFR 59.12 (mL/min/1.73m2); Glucose 107 mg/dL (74-106); Magnesium 2.1 mg/dL (1.8-2.4); Potassium 3.7 mmol/L (3.5-5.1); Sodium 139 mmol/L (136-145); TSH (W/Ref FT4) 17.25 uIU/mL (0.36-3.74); Total Protein 8.2 g/dL (6.4-8.2); Troponin I 14 ng/L (<or=51)
[2024-10-02 13:30] LABS: C-Reactive Protein < 0.50 mg/dL (<or=0.5)
[2024-10-02] MEDS: Normal Saline - Diluent 50 ML VIAL IJ (13:43)
[2024-10-02] MEDS: Omnipaque 350 MG/ML 100 ML BTL IJ (13:44)
[2024-10-02 13:50] LABS: Glucose Negative (Negative)
[2024-10-02 13:57] LABS: C & S Indicated? No; WBC 0-2 HPF (0-5)
[2024-10-02 17:00] VITALS: BP 166/86; PULSE 84; RESP 16; O2SAT 97
--- NOTE | 2024-10-02 18:37 | W.PM.HP.N ---
Date of service: 10/02/24 Time of Service: 18:37 Assessment and Plan Assessment and plan (1) TIA (transient ischemic attack): Status: Acute Assessment and plan: - Patient presented with vertiginous-like symptoms thought to have been central - Did not trial meclizine or do manipulative maneuvers to assess for peripheral vertigo - CTA without acute findings - Patient back to baseline, however teleneuro recommended MRI which will be obtained in the morning - Monitor on telemetry (2) Hyperlipidemia: Status: Acute Assessment and plan: - Continue 10 mg rosuvastatin (3) Essential hypertension: Status: Chronic Assessment and plan: - Continue daily 50 mg atenolol History of Present Illness History of Present Illness Chief Complaint: dizziness Narrative: 74-year-old female with a past medical history of hypertension, hyperlipidemia who presents to the emergency department complaints of dizziness. Patient states that she woke up in the middle the night and noted she had some vertigo and is leading to the right side. She went back to sleep and woke up and symptoms continued prompting her to present to the emergency department. States that she felt unsteady on her feet, but denied any headache, lightheadedness, dizziness, chest pain, nausea, vomiting, diarrhea, visual changes, slurred speech, weakness in upper or lower extremity. In the emergency department the patient was noted to have normal vital signs, she had an NIH score of 2 with an ataxic gait, but she had a normal CBC and CMP. She had a CTA brain and neck that did not show any acute findings. Initial emergency room provider did not do any Dex Hallpike or Kimberly maneuver. However, patient was handed off to second emergency room provider and by that time symptoms are completely resolved. Teleneuro consult recommended MRI for further evaluation. At which time emergency room provider paged hospitalist for admission for patient with TIA versus vertigo requiring MRI. Review of Systems All systems reviewed & are unremarkable except as noted in HPI and below PFSH All Active Problems (Updated 10/02/24 @ 18:38 by Roman Luciano MD) TIA (transient ischemic attack) (Acute) Skin lesions, generalized (Acute) Hyperlipidemia (Acute) 12/27/22 10-year ASCD risk 15.5% pre-statin Actinic keratosis (Chronic 11/02/15) Anxiety (Acute) induced by office visits Diverticula of colon (Chronic 08/10/14) Essential hypertension (Chronic 04/11/13) white coat hypertension Mitral valve prolapse (Chronic 04/11/13) Osteopenia (Chronic 04/11/13) Microscopic hematuria (Chronic 04/11/13) Hammer toe of right foot (Acute) Bunion of great toe of right foot (Acute) Callus of foot (Acute) Localized swelling, mass and lump, upper limb, bilateral (Acute) Soft tissue calcification (Acute) Unspecified lump in axillary tail of the left breast (Acute) Medical History Breast pain, left Axillary fullness Mental status change resolved Hypokalemia Breast lump Surgical History H/O colonoscopy Ganglion cyst of finger of left hand Left Index Finger S/P Excision: 06/13/2022 Digital mucous cyst (06/26/16) Left Middle Finger S/P Excision: 07/21/2016 Cystoscopy (~2001) Cervical Conization/LEEP (~1978) Family History Mother , 86 Diabetes Heart disease CHF (congestive heart failure) Stroke Macular degeneration Father , age 90 Essential hypertension Hyperlipidemia Heart disease valve replacement Prostate cancer Sister Essential hypertension Hyperlipidemia Sister Hyperlipidemia Hypertension Maternal Grandfather , 66 Lung cancer Paternal Grandfather , 54 Essential hypertension Heart disease Hyperlipidemia Maternal Grandmother , 86 Macular degeneration Colon cancer Paternal Grandmother , 65 Uterine cancer Son Essential hypertension Daughter No problems noted. Grand daughter Leukemia Social History Smoking/Tobacco Use Status: Never Smoking risk assessment performed?: Yes Alcohol Intake: current Alcohol Intake frequency: holidays/special occasions only Alcohol type: wine Drug use: Never Substance use type: does not use Adopted: No Caregiver/Support person: No Foster care: No Household members: spouse Housing: house Number of Children: 2 number of grandchildren: 4 Communication Needs: Corrective Lenses Education Level: vocational Do you need help understanding health information?: Never current occupation: retired Pets and animals: No Sexually active: Yes Do you think of yourself as: straight/heterosexual Current gender identity: female What is your relationship status?: How often do you talk on the phone with friends or family?: three or more times per week How often do you get together with friends or relatives?: twice per week How often do you attend bahai or orthodoxy services?: decline to answer Do you belong to any clubs or organized social groups?: no Panel score (0-1 are the most socially isolated patients): 2 What type of physical activity do you participate in: walking, swimming and other Details: gardening Duration: 15-30 minutes/day Frequency: 5-6 times per week Ayse/Advent: Taoism Special ayse needs: No Agree to transfusion: Yes Seatbelt use: always Helmet use: No Drive intox or ride w/intox truss driver helper: No Do you feel safe at home: Yes Do you feel safe in your relationship?: Yes Meds Allergies and Home Medications Allergies Allergy/AdvReac Type Severity Reaction Status Date / Time No Known Allergies Allergy Verified 10/02/24 11:50 Home Medications ?Medication ?Instructions ?Recorded ?Confirmed ?Type ibuprofen 600 mg tablet 600 mg PO PRN 12/27/22 10/02/24 History acetaminophen 500 mg tablet 1,000 mg (2 x 500 mg) PO Q8H PRN 05/08/23 10/02/24 Rx (Masophen) PRN pain #120 tabs atenolol 50 mg tablet See Rx Instructions .Route 08/23/23 10/02/24 Rx .COMPLEX #135 tabs hydrochlorothiazide 25 mg tablet See Rx Instructions .Route 08/23/23 10/02/24 Rx .COMPLEX #90 tabs potassium chloride 20 mEq 20 meq PO DAILY #90 tabs 01/02/24 10/02/24 Rx tablet,extended release rosuvastatin 10 mg tablet 10 mg PO DAILY #90 tabs 01/02/24 10/02/24 Rx Exam Narrative Exam Narrative: Well-appearing female laying in bed in no acute distress, ANO x 4, heart regular rhythm, lungs good auscultation bilaterally, abdomen soft, nontender, nondistended, cranial nerves II through XII intact, normal sensation and strength in bilateral upper and lower extremities Results Labs 10/02/24 12:49 10/02/24 12:49 Labs: Laboratory Results - last 24 hr 10/02/24 10/02/24 12:49 13:16 WBC 6.86 RBC 4.35 Hgb 13.1 Hct 39.1 MCV 90 MCH 30.1 MCHC 33.5 RDW 12.7 Plt Count 288 MPV 9.0 Immature Gran % 0.1 Neutrophils % 70.0 Lymphocytes % 21.3 Monocytes % 7.6 Eosinophils % 0.6 Basophils % 0.4 Nucleated RBC % 0.0 Absolute Neutrophils 4.80 Absolute Lymphocytes 1.46 Absolute Monocytes 0.52 Absolute Eosinophils 0.04 Absolute Basophils 0.03 ESR 12 Sodium 139 Potassium 3.7 Chloride 101 Carbon Dioxide 31.1 Anion Gap 6.9 BUN 17 Creatinine 1.0 Est GFR (CKD-EPI 2020) 59.12 Glucose 107 H Calcium 9.6 Magnesium 2.1 Total Bilirubin 0.5 AST 25 ALT 23 Alkaline Phosphatase 91 Troponin I 14 C-Reactive Protein < 0.50 Total Protein 8.2 Albumin 4.3 TSH 17.25 H Free T4 0.77 Urine Color Yellow Urine Clarity Clear Urine pH 7.0 Ur Specific [place] 1.015 Urine Protein Negative Urine Ketones Negative Urine Blood Moderate H Urine Nitrite Negative Urine Bilirubin Negative Urine Urobilinogen 0.2 Ur Leukocyte Esterase Negative Urine RBC 10-20 H Urine WBC 0-2 Ur Epithelial Cells Rare Urine Crystals Negative Urine Bacteria Negative Urine Casts Negative Urine Mucus Negative Ur Culture Indicated? No Urine Glucose Negative Last Vital Signs Temp 98.0 F 10/02/24 11:44 Pulse 84 10/02/24 17:00 Resp 16 10/02/24 17:00 BP 166/86 H 10/02/24 17:00 Pulse Ox 97 10/02/24 17:00 Time Spent Time spent with Patient: >75 minutes Time was spent: preparing to see the patient(eg.review tests), obtaining and/or reviewing separately otained hiistory, ordering medications,tests, procedures, referring, communicating with other health care information associate, indepentently interpreting results, counseling the patient and care coordination
[2024-10-02] MEDS: Aspirin 325 MG TAB PO (18:44)
[2024-10-02 18:54] VITALS: BP 150/90; PULSE 68; RESP 15; O2SAT 94
--- NOTE | 2024-10-02 20:59 | W.PC.ACHO ---
Registration Status: REG ER Primary Language: Preferred Language: Irish ED Information & Data Chief Complaint Dizzy/Sync 10/02/24 12:54 Chief Complaint Dizzy/Sync 10/02/24 12:04 Triage Note Dizzy since 3am, has had 10/02/24 11:44 fuzzy feeling since sunday. Denies medication changes, or substance use Blood sugar in tr Medical / Surgical History (Last Reviewed 10/02/24 @ 11:10 by Cade Harris) Breast pain, left Axillary fullness Mental status change resolved Hypokalemia Breast lump (Last Reviewed 10/02/24 @ 11:10 by Cade Harris) H/O colonoscopy Ganglion cyst of finger of left hand Digital mucous cyst (06/26/16) Cystoscopy (~2001) Cervical Conization/LEEP (~1978) Most Recent Vital Signs Temperature 36.7 C 10/02/24 11:44 Pulse 68 10/02/24 18:54 Respiratory Rate 15 10/02/24 18:54 Respiratory Effort Normal 10/02/24 17:00 Respiratory Depth Normal 10/02/24 17:00 Respiratory Pattern Normal 10/02/24 17:00 Blood Pressure 150/90 H 10/02/24 18:54 Blood Pressure Mean 110 10/02/24 18:54 Blood Pressure Position Sitting 10/02/24 18:54 Pulse Oximetry 94 10/02/24 18:54 Oxygen Delivery Method Room Air 10/02/24 18:54 Oxygen Flow Rate 0 10/02/24 18:54 Allergies No Known Allergies Allergy (Verified 10/02/24 11:50) Precautions Isolation Standard precaution 10/02/24 12:54 Active Medications Generic Name Dose Route Start Last Admin Trade Name Naty PRN Reason Stop Dose Admin Iohexol 100 ml 10/02/24 13:45 10/02/24 13:44 Omnipaque 350 Mg/Ml 100 Ml Btl IJ 11/01/24 23:59 70 ml DIRECTED LULY Administration Sodium Chloride 50 ml 10/02/24 13:45 10/02/24 13:43 Normal Saline - Diluent 50 Ml Vial IJ 50 ml .FOR DI USE LULY Administration IV IV Catheter Type [Right Saline Lock Antecubital] IV Catheter Gauge [Right 18 Antecubital] Diagnostics 10/02/24 10/02/24 Range/Units 13:16 12:49 WBC 6.86 (4.4-10.8) 10^3/uL RBC 4.35 (3.93-5.22) 10^6/uL Hgb 13.1 (11.2-15.7) g/dL Hct 39.1 (36.0-46.0) % MCV 90 (80-95) fL MCH 30.1 (27.0-33.0) pg MCHC 33.5 (32.0-36.0) % RDW 12.7 (11.7-14.6) % Plt Count 288 (130-400) 10^3/uL MPV 9.0 (8.0-11.0) fL Immature Gran % 0.1 % Neutrophils % 70.0 % Lymphocytes % 21.3 % Monocytes % 7.6 % Eosinophils % 0.6 % Basophils % 0.4 % Nucleated RBC % 0.0 (0.0-0.3) % Absolute Neutrophils 4.80 (1.2-6.7) 10^3/uL Absolute Lymphocytes 1.46 (1.2-3.4) 10^3/uL Absolute Monocytes 0.52 (0.1-0.8) 10^3/uL Absolute Eosinophils 0.04 (0.0-0.7) 10^3/uL Absolute Basophils 0.03 (0.0-0.2) 10^3/uL ESR 12 (0-30) mm/hr Sodium 139 (136-145) mmol/L Potassium 3.7 (3.5-5.1) mmol/L Chloride 101 (98-107) mmol/L Carbon Dioxide 31.1 (21.0-32.0) mmol/L Anion Gap 6.9 (3-11) mmol/L BUN 17 (7-18) mg/dL Creatinine 1.0 (0.55-1.02) mg/dL Est GFR (CKD-EPI 2020) 59.12 (mL/min/1.73m2) Glucose 107 H (74-106) mg/dL Calcium 9.6 (8.5-10.1) mg/dL Magnesium 2.1 (1.8-2.4) mg/dL Total Bilirubin 0.5 (0.2-1.0) mg/dL AST 25 (15-37) U/L ALT 23 (14-59) U/L Alkaline Phosphatase 91 (46-116) U/L Troponin I 14 (<or=51) ng/L C-Reactive Protein < 0.50 (<or=0.5) mg/dL Total Protein 8.2 (6.4-8.2) g/dL Albumin 4.3 (3.4-5.0) g/dL TSH 17.25 H (0.36-3.74) uIU/mL Free T4 0.77 (0.76-1.46) ng/dL Urine Color Yellow (Yellow) Urine Clarity Clear (Clear) Urine pH 7.0 (5-8) Ur Specific [place] 1.015 (1.005-1.025) Urine Protein Negative (Neg-Trace) mg/dL Urine Ketones Negative (Negative) mg/dL Urine Blood Moderate H (Negative) Urine Nitrite Negative (Negative) Urine Bilirubin Negative (Negative) Urine Urobilinogen 0.2 (Up to 0.2) mg/dL Ur Leukocyte Esterase Negative (Negative) Urine RBC 10-20 H (0-2) HPF Urine WBC 0-2 (0-5) HPF Ur Epithelial Cells Rare (Negative) HPF Urine Crystals Negative (Negative) HPF Urine Bacteria Negative (Negative) HPF Urine Casts Negative (Negative) LPF Urine Mucus Negative (Negative) Ur Culture Indicated? No Urine Glucose Negative (Negative) mg/dL [id number] Documentation Fingerstick Glucose Start: 10/02/24 11:48 Freq: Status: Active Protocol: Activity Type Activity Date Activity User E-sign Co-sign Detail Recorded Client Recorded Date Recorded By Document 10/02/24 11:47 LORIG DAEMON(3) [id number] 10/02/24 11:48 BKG DAEMON(4) Intake and Output - 24 Hour Total 10/02/24 11:38 thru 10/02/24 11:44 Weight 67.55 kg Falls Risk Assessment History of Falls No History 10/02/24 12:55 Contributing Factors No Factors 10/02/24 12:55 Ambulatory Aids Independent 10/02/24 12:55 Tubes/Lines None 10/02/24 12:55 Gait Evaluation No gait disturbance 10/02/24 12:55 Cognition No cognitive impairment 10/02/24 12:55 Fall Total Score 0 10/02/24 12:55 Level of Risk Standard/Low Risk 07/31/25 12:55 Problems (Last Reviewed 10/02/24 @ 11:10 by Cade Harris) TIA (transient ischemic attack) (Acute) Hyperlipidemia (Acute) Essential hypertension (Chronic 04/11/13) v v v v v v v v v Sending and/or Receiving Nurses: Please use comment section below to note any information pertinent to the patient hand-off not included above. Information / Comments: no futher Report received from: Debo
[2024-10-02 21:13] VITALS: BP 137/79; PULSE 69; RESP 18; TEMP 37; O2SAT 91
[2024-10-02 21:32] VITALS: BP 137/79; PULSE 69; RESP 18; TEMP 37; O2SAT 91
[2024-10-02] MEDS: Atenolol 50 MG TAB 75 MG PO (22:06)
[2024-10-02] MEDS: Potassium Chloride 20 MEQ TABCR PO (22:06)
[2024-10-02] MEDS: Rosuvastatin 10 MG TAB PO (22:07)
[2024-10-02] MEDS: hydroCHLOROthiazide 25 MG TAB PO (22:07)
[2024-10-03 02:00] VITALS: BP 93/52; PULSE 59; RESP 17; TEMP 36.2; O2SAT 93
[2024-10-03 06:52] LABS: HCT 36.6 % (36.0-46.0); HGB 12.2 g/dL (11.2-15.7); MCH 30.3 pg (27.0-33.0); MCHC 33.3 % (32.0-36.0); MCV 91 fL (80-95); MPV 9.0 fL (8.0-11.0); Platelet Count 257 10^3/uL (130-400); RBC 4.03 10^6/uL (3.93-5.22); RDW 12.9 % (11.7-14.6); RDW-SD 42.8 fL; WBC 6.17 10^3/uL (4.4-10.8)
--- NOTE | 2024-10-03 07:00 | DI.MRI_ITS ---
Exam(s) MR BRAIN WO EXAM: MR BRAIN WO CLINICAL HISTORY: dizziness, resolved, rec by Teleneuro TECHNIQUE: Multiplanar multisequence MRI of the brain was performed. COMPARISON: CT/CTA study of 10/02/2024 was reviewed. FINDINGS: CEREBRAL PARENCHYMA: There is no evidence of intracranial hemorrhage, mass effect, or shift of midline structures. There are no extra-axial fluid collections. Ventricles are not enlarged or shifted. There is no significant focal signal abnormality in the cerebellar hemispheres nor within the kvng, midbrain, and thalami. There is scattered foci of FLAIR bright signal abnormality in the bilateral white matter, measuring up to 11 mm size but not associated with hemorrhage, surrounding edema, nor restricted diffusion. There are none at the level the corpus callosum. PITUITARY GLAND: No mass nor parasellar abnormality. No obvious abnormality in the cavernous sinuses. FLOW VOIDS: The expected flow void are noted. No evidence of obvious aneurysm nor obvious vascular malformation. PARANASAL SINUSES: The visualized paranasal sinuses appear unremarkable. No obvious finding ORBITS: No obvious findings. IMPRESSION: There is scattered periventricular white matter signal abnormality foci which are nonspecific. These are possibly related to chronic white matter ischemic changes. There is no associated hemorrhage, surrounding edema, nor restricted diffusion to suggest acute or subacute ischemic event. DATA REPOSITORY:
[2024-10-03 07:19] VITALS: BP 131/77; PULSE 60; RESP 18; TEMP 36.5; O2SAT 99
[2024-10-03 07:22] LABS: Anion Gap 7.3 mmol/L (3-11); BUN 17 mg/dL (7-18); CO2 30.7 mmol/L (21.0-32.0); Calcium 8.9 mg/dL (8.5-10.1); Chloride 102 mmol/L (98-107); Estimated GFR 67.08 (mL/min/1.73m2); Glucose 99 mg/dL (74-106); Magnesium 2.1 mg/dL (1.8-2.4); Potassium 3.4 mmol/L (3.5-5.1); Sodium 140 mmol/L (136-145)
[2024-10-03 08:00] VITALS: PULSE 82
[2024-10-03] MEDS: Enoxaparin 40 MG/0.4 ML SYR SC (10:03)
[2024-10-03 11:42] VITALS: BP 131/68; PULSE 66; RESP 18; TEMP 36.8; O2SAT 98
--- NOTE | 2024-10-03 13:07 | INITIAL_ITS ---
Date of service: 10/03/24 Time of Service: 13:07 Care Management Initial Assmt Initial Assessment Reason for Hospitalization: TIA workup Functional Status/Living Situation Patient Presentation: Ashtyn was sitting up in bed when CM met with her. She is accompanied by her and daughter. Pt denies concerns at this time and expresses that she is eager to discharge home. Ashtyn is active and independent at baseline, no community needs at this time. Town of Residence: [place] Resides with: Spouse ( Javier) Significant Other/Family: [facility] Employment Status: Retired Instrumental Activities of Daily Living (ADLs): Independent Medications Medication Management: No Issues/Barriers identified Advance Directives Advance Directives: 2 Do you have an Advance Directive: Y 06/21/ 16, 09:42 AD On File at [facility]: Y 07/27/16, 14:44 Date Asked 10/02/24 10/02/24, 12:03 AD Date Reviewed 10/02/24 10/02/24, 12:03 COLST On File at [facility] COLST Date Scanned Code Status Resuscitation Status Full Code Insurance Coverage/Financial Issues Insurance: /[facility] - [id number] Care Team Visit Care Team Role Provider Type Mark Urban MD MD [facility] STAFF PHYSICIAN Steffen Waters NP Primary Care Provider NURSE PRACTITIONER ROLDAN [facility] Provider PHYSICIANS W[employer]CO[employer] WIPER Roman Luciano MD Admit Provider [facility] STAFF PHYSICIAN Attending Provider Discharge Potential Discharge Needs: PCP F/U Appt Anticipated Barriers to Discharge: None Identified Patient/Family Education Needs: Review discharge instructions, discuss Ask Me Three Transportation: Private vehicle Plan: Anticipate Ashtyn will discharge home via private vehicle with family, once medically cleared for discharge. Pt will follow up with community providers and her discharge plan of care as directed. No new services are anticipated at this time. CM will follow. Social Determinants of Health Screening Social Determinants of health last assessed in clinic: 10/03/24 Will the Patient Participate in the Screening?: Yes Do you worry about having a steady place to live?: yes What is your living situation today?: I have housing today, but am worried about losing it Problems where you live: no known problems In the past 12 months, have you had to go without electric, gas, oil or water in your home?: no 1. Within the past 12 months, we worried whether our food would run out before we got money to buy more.: Never true 2. Within the past 12 months, the food we bought just didn't last and we didn't have money to get more.: Never true Has lack of transportation kept you from medical appointments or from doing things needed for daily living?: no Has anyone in your life made you feel unsafe or unsupported?: no How hard is it for you to pay for the very basics like food, housing, medical care, and heating? Would you say it is:: Not hard at all Do you want help finding or keeping work or a job?: I do not need or want help If for any reason you need help with day-to-day activities such as bathing, preparing meals, shopping, managing finances, etc., do you get the help you need?: I don?t need any help How often do you feel lonely or isolated from those around you?: Never Do you speak a language other than Latvian at home?: No Does the patient want assistance with any of the above?: No Health Related Social Needs Health related social needs: housing instability, housed, with risk of homelessness (Z59.811) PFSH All Active Problems (Updated 10/02/24 @ 18:38 by Roman Luciano MD) TIA (transient ischemic attack) (Acute) Skin lesions, generalized (Acute) Hyperlipidemia (Acute) 12/27/22 10-year ASCD risk 15.5% pre-statin Actinic keratosis (Chronic 11/02/15) Anxiety (Acute) induced by office visits Diverticula of colon (Chronic 08/10/14) Essential hypertension (Chronic 04/11/13) white coat hypertension Mitral valve prolapse (Chronic 04/11/13) Osteopenia (Chronic 04/11/13) Microscopic hematuria (Chronic 04/11/13) Hammer toe of right foot (Acute) Bunion of great toe of right foot (Acute) Callus of foot (Acute) Localized swelling, mass and lump, upper limb, bilateral (Acute) Soft tissue calcification (Acute) Unspecified lump in axillary tail of the left breast (Acute) Medical History Breast pain, left Axillary fullness Mental status change resolved Hypokalemia Breast lump Surgical History H/O colonoscopy Ganglion cyst of finger of left hand Left Index Finger S/P Excision: 06/13/2022 Digital mucous cyst (06/26/16) Left Middle Finger S/P Excision: 07/21/2016 Cystoscopy (~2001) Cervical Conization/LEEP (~1978) Family History Mother , 86 Diabetes Heart disease CHF (congestive heart failure) Stroke Macular degeneration Father , age 90 Essential hypertension Hyperlipidemia Heart disease valve replacement Prostate cancer Sister Essential hypertension Hyperlipidemia Sister Hyperlipidemia Hypertension Maternal Grandfather , 66 Lung cancer Paternal Grandfather , 54 Essential hypertension Heart disease Hyperlipidemia Maternal Grandmother , 86 Macular degeneration Colon cancer Paternal Grandmother , 65 Uterine cancer Son Essential hypertension Daughter No problems noted. Grand daughter Leukemia Social History Smoking/Tobacco Use Status: Never Smoking risk assessment performed?: Yes Alcohol Intake: current Alcohol Intake frequency: holidays/special occasions only Alcohol type: wine Drug use: Never Substance use type: does not use Adopted: No Caregiver/Support person: No Foster care: No Household members: spouse Housing: house Number of Children: 2 number of grandchildren: 4 Communication Needs: Corrective Lenses Education Level: vocational Do you need help understanding health information?: Never current occupation: retired Pets and animals: No Sexually active: Yes Do you think of yourself as: straight/heterosexual Current gender identity: female What is your relationship status?: How often do you talk on the phone with friends or family?: three or more times per week How often do you get together with friends or relatives?: twice per week How often do you attend religious or denominational services?: decline to answer Do you belong to any clubs or organized social groups?: no Panel score (0-1 are the most socially isolated patients): 2 What type of physical activity do you participate in: walking, swimming and other Details: gardening Duration: 15-30 minutes/day Frequency: 5-6 times per week Ayse/Congregational: Evangelical Special ayse needs: No Agree to transfusion: Yes Seatbelt use: always Helmet use: No Drive intox or ride w/intox shuttle driver: No Do you feel safe at home: Yes Do you feel safe in your relationship?: Yes
--- NOTE | 2024-10-03 14:49 | PHA.REVIEW2 ---
Pharmacy Admission Review Admission Clinical Review Admission Pharmacy Review: TIA (transient ischemic attack) (Acute) Hyperlipidemia (Acute) No Known Allergies Allergy (Verified 10/02/24 11:50) Resuscitation Status Full Code Height 5 ft 5 in Weight 65 kg Pharmacy Admission Review Renal Dosing Renal Dosing: BUN 17 mg/dL (7-18) 10/03/24 06:36 Creatinine 0.9 mg/dL (0.55-1.02) 10/03/24 06:36 Medications needing adjustments: Reviewed (CrCl 50.15 mL/min) List of meds needing interventions: Current medications are okay Anticoagulation Anticoagulation: Hgb 12.2 g/dL (11.2-15.7) 10/03/24 06:36 Hct 36.6 % (36.0-46.0) 10/03/24 06:36 Plt Count 257 10^3/uL (130-400) 10/03/24 06:36 Creatinine 0.9 mg/dL (0.55-1.02) 10/03/24 06:36 DVT Prophylaxis: Reviewed Medications: Enoxaparin (40mg daily) Relevant Labs Relevant Labs: ESR 12 mm/hr (0-30) 10/02/24 12:49 Sodium 140 mmol/L (136-145) 10/03/24 06:36 Potassium 3.4 mmol/L (3.5-5.1) L 10/03/24 06:36 Chloride 102 mmol/L (98-107) 10/03/24 06:36 Magnesium 2.1 mg/dL (1.8-2.4) 10/03/24 06:36 C-Reactive Protein < 0.50 mg/dL (<or=0.5) 10/02/24 12:49 Electrolytes, C-Reactive P, ESR: Reviewed (K 3.4 - has PO 20mEq daily ordered) Cardiac Review Cardiac Review: Troponin I 14 ng/L (<or=51) 10/02/24 12:49 BP, HR, EF%: Reviewed (HR and BP WNL) List meds needing interventions: Has orders for atenolol 75mg daily and HCTZ 25mg daily QTc Review QTc: Reviewed (473 10/02/24) IV to PO Switch IV Medications: Reviewed Home Meds Home Med List reviewed: Reviewed Relevent Home Meds Not ordered & why?: ibuprofen (PRN) Current Meds Current Medication Order Review: Reviewed
--- NOTE | 2024-10-03 14:55 | W.PM.DS.N ---
Date of service: 10/03/24 Time of Service: 14:55 DS: Diagnosis Discharge Diagnosis (1) TIA (transient ischemic attack): Status: Acute (2) Hyperlipidemia: Status: Acute (3) Essential hypertension: Status: Chronic Discharge Plan Disposition Patient Disposition: Home Condition: Stable Discharge Details Reason For Visit: TIA Admit Date/Time: 10/02/24 18:37 Admit Provider: Roman Luciano Attending Provider: Roman Luciano Primary Care Provider: Steffen Lieberman Hospital Course Hospital Course: This is a 74-year-old female who was admitted after having episodes of dizziness last night. Recommendations were made to tell medicine neurology to get an MRI and started on Antivert. MRI was done essentially was negative. Patient was not on any telemetry last night. In reviewing her symptoms and story I do find some credence to the fact that this could be BPPV. I have given the patient handouts for the Kimberly maneuver. The patient will be discharged home in good condition. In regards to diagnostic information CBC within normal limits mildly low potassium at 3.4 renal function was within normal limits TSH was elevated at 17.25 but free T4 was 0.77. In regards to follow-up would discuss thyroid results with PCP and consider outpatient ultrasound. Patient is on hydrochlorothiazide so I will add some potassium supplementation. Patient was also noted to have hematuria and would recommend follow-up urinalysis to ensure resolution in 4 to 6 weeks. EKG has been read as normal sinus rhythm this has been verified by staff physician Dr. Ferreira of cardiology. Recommendations for Follow Up Recommended tests to be ordered by follow up provider: consider thyroid usn 2/2 elevated tsh with low normal ft4 repeat ua in 4-6 to ensure resolution continue with potassium supplementation Home Meds and New Rx's Prescriptions: No Action rosuvastatin 10 mg tablet 10 mg PO DAILY Qty: 90 4RF potassium chloride 20 mEq tablet extended release 20 meq PO DAILY Qty: 90 4RF ibuprofen 600 mg tablet 600 mg PO PRN acetaminophen [Masophen] 500 mg tablet 1,000 mg PO Q8H PRN PRN (Reason: pain) Qty: 120 0RF hydrochlorothiazide 25 mg tablet See Rx Instructions .ROUTE .COMPLEX Qty: 90 4RF Dose Instruction: TAKE 1 TABLET BY MOUTH DAILY Rx Instructions: TAKE 1 TABLET BY MOUTH DAILY atenolol 50 mg tablet See Rx Instructions .ROUTE .COMPLEX Qty: 135 4RF Dose Instruction: TAKE 1 AND 1/2 TABLETS BY MOUTH DAILY Rx Instructions: TAKE 1 AND 1/2 TABLETS BY MOUTH DAILY Discharge Instructions Stand Alone Forms: Nursing Discharge Form Referrals: Steffen Lieberman NP [Primary Care Provider, Medicine] Referral Note: follow up with PCP in 5-7 days Activity:: Activity as Tolerated Equipment/Supplies:: No Equipment Needed Diet:: As Tolerated Discharge Orders Discharge Orders: Discharge Order (Routine); Ordered 10/03/24 Ordered By: Mark Urban DS: Summary Time Spent with Patient providing and/or coordinating discharge services: Less than 30 minutes Status at Discharge Functional status at discharge: independent ambulation Overall status at discharge: patient is back to baseline Mental Status: mental status grossly normal Speech and Movement: speech and movement normal Mood: congruent mood Affect: normal affect Quality:SDOH Health Related Social Needs: Health related social needs risk of homeless Exam Narrative Exam Narrative: Well-appearing female laying in bed in no acute distress, ANO x 4, heart regular rhythm, lungs good auscultation bilaterally, abdomen soft, nontender, nondistended, cranial nerves II through XII intact, normal sensation and strength in bilateral upper and lower extremities Psych Mental Status: mental status grossly normal Speech and Movement: speech and movement normal Mood: congruent mood Affect: normal affect DS: Data Vitals/I&O Vitals and I&O: Vital Signs Temperature 36.8 C 10/03/24 11:42 Temperature Source Temporal Artery Scan 10/03/24 11:42 Pulse 66 10/03/24 11:42 Pulse Rhythm Regular 10/02/24 21:13 Respiratory Rate 18 10/03/24 11:42 Respiratory Effort Normal 10/02/24 21:13 Respiratory Depth Normal 10/02/24 21:13 Respiratory Pattern Normal 10/02/24 21:13 Blood Pressure 131/68 10/03/24 11:42 Blood Pressure Mean 89 10/03/24 11:42 Blood Pressure Position Sitting 10/02/24 18:54 Pulse Oximetry 98 10/03/24 11:42 Oxygen Delivery Method Room Air 10/03/24 11:42 Oxygen Flow Rate 0 10/03/24 11:42 Pain Level 0 10/03/24 02:00 Intake & Output 10/02/24 10/03/24 10/03/24 23:59 11:59 23:59 Weight 65 kg Other: Urine Color Yellow Urine Appearance Clear Urine Odor None Comment pt. is independent in her Room Data Completed and Pending Labs on day of discharge: Labs from last 24 hours 10/03/24 06:36 WBC 6.17 RBC 4.03 Hgb 12.2 Hct 36.6 MCV 91 MCH 30.3 MCHC 33.3 RDW 12.9 Plt Count 257 MPV 9.0 Sodium 140 Potassium 3.4 L Chloride 102 Carbon Dioxide 30.7 Anion Gap 7.3 BUN 17 Creatinine 0.9 Est GFR (CKD-EPI 2020) 67.08 Glucose 99 Calcium 8.9 Magnesium 2.1 PFSH All Active Problems (Updated 10/02/24 @ 18:38 by Roman Luciano MD) TIA (transient ischemic attack) (Acute) Skin lesions, generalized (Acute) Hyperlipidemia (Acute) 12/27/22 10-year ASCD risk 15.5% pre-statin Actinic keratosis (Chronic 11/02/15) Anxiety (Acute) induced by office visits Diverticula of colon (Chronic 08/10/14) Essential hypertension (Chronic 04/11/13) white coat hypertension Mitral valve prolapse (Chronic 04/11/13) Osteopenia (Chronic 04/11/13) Microscopic hematuria (Chronic 04/11/13) Hammer toe of right foot (Acute) Bunion of great toe of right foot (Acute) Callus of foot (Acute) Localized swelling, mass and lump, upper limb, bilateral (Acute) Soft tissue calcification (Acute) Unspecified lump in axillary tail of the left breast (Acute) Medical History Breast pain, left Axillary fullness Mental status change resolved Hypokalemia Breast lump Surgical History H/O colonoscopy Ganglion cyst of finger of left hand Left Index Finger S/P Excision: 06/13/2022 Digital mucous cyst (06/26/16) Left Middle Finger S/P Excision: 07/21/2016 Cystoscopy (~2001) Cervical Conization/LEEP (~1978) Family History Mother , 86 Diabetes Heart disease CHF (congestive heart failure) Stroke Macular degeneration Father , age 90 Essential hypertension Hyperlipidemia Heart disease valve replacement Prostate cancer Sister Essential hypertension Hyperlipidemia Sister Hyperlipidemia Hypertension Maternal Grandfather , 66 Lung cancer Paternal Grandfather , 54 Essential hypertension Heart disease Hyperlipidemia Maternal Grandmother , 86 Macular degeneration Colon cancer Paternal Grandmother , 65 Uterine cancer Son Essential hypertension Daughter No problems noted. Grand daughter Leukemia Social History Smoking/Tobacco Use Status: Never Smoking risk assessment performed?: Yes Alcohol Intake: current Alcohol Intake frequency: holidays/special occasions only Alcohol type: wine Drug use: Never Substance use type: does not use Adopted: No Caregiver/Support person: No Foster care: No Household members: spouse Housing: house Number of Children: 2 number of grandchildren: 4 Communication Needs: Corrective Lenses Education Level: vocational Do you need help understanding health information?: Never current occupation: retired Pets and animals: No Sexually active: Yes Do you think of yourself as: straight/heterosexual Current gender identity: female What is your relationship status?: How often do you talk on the phone with friends or family?: three or more times per week How often do you get together with friends or relatives?: twice per week How often do you attend orthodox or jew services?: decline to answer Do you belong to any clubs or organized social groups?: no Panel score (0-1 are the most socially isolated patients): 2 What type of physical activity do you participate in: walking, swimming and other Details: gardening Duration: 15-30 minutes/day Frequency: 5-6 times per week Ayse/Moravian: Restorationist Special ayse needs: No Agree to transfusion: Yes Seatbelt use: always Helmet use: No Drive intox or ride w/intox waste collection driver: No Do you feel safe at home: Yes Do you feel safe in your relationship?: Yes Time Spent with Patient Time Spent with Patient: <45 minutes Time was spent: preparing to see the patient(eg.review tests), obtaining and/or reviewing separately otained hiistory, ordering medications,tests, procedures, referring, communicating with other health care management associate, indepentently interpreting results, counseling the patient and care coordination
--- NOTE | 2024-10-03 15:13 | PDOC.CMDIS ---
Date of service: 10/03/24 Time of Service: 15:13 LACE Index Scoring Tool Questions: Length of Stay (in days): 1 Was the patient admitted via the E.D.?: Yes Comorbidities: Cerebrovascular Disease (TIA) E.D. Visits: 1 Answers: Total Score: 6 Risk of Readmission: Low Risk Care Management Discharge Plan Reason for Hospitalization: TIA Discharge Plan: Ashtyn is discharged home via private vehicle with family. Pt will follow up with community providers and agrees to adhere to her discharge plan of care as directed. No services are ordered before discharge. Patient/Family Education Needs: Discharge instructions and plan to follow up after discharge. Discuss ask me three. SDOH Health Related Social Needs: Health related social needs risk of homeless
== END 2024-10-03 16:07 | disposition home or self-care (01) ==
LOC: ER 16:41 → MS 20:59
PROVIDERS: Physician Assistant; Admitting Provider Family Medicine; Emergency Provider Physician Assistant; PCP Nurse Practitioner Family; Responsible Provider Hospitalist; Visit Provider Family Medicine
DX: G45.9 Transient cerebral ischemic attack, unspecified (principal); I10 Essential (primary) hypertension; E78.5 Hyperlipidemia, unspecified; F41.9 Anxiety disorder, unspecified; E03.9 Hypothyroidism, unspecified; R26.81 Unsteadiness on feet; L57.0 Actinic keratosis; K57.30 Diverticulosis of large intestine without perforation or abscess without bleeding; I34.0 Nonrheumatic mitral (valve) insufficiency; R31.29 Other microscopic hematuria; R94.6 Abnormal results of thyroid function studies
CPT/HCPCS: 00123; 36415; 36416; 70496; 70498; 80048; 80053; 82962; 85027; 85652; 93005; 96372; 99285; J1650; 70551; 71046; 81003; 81015; 83735; 84439; 84443; 84484; 85025; 86140; 93010; 99223; 99238; G0378; J3490

== ENCOUNTER 2024-11-06 15:09 | Outpatient (CLI) | payer MEDICARE, SELFPAY ==
[2024-11-06 12:30] LABS: TSH (W/Ref FT4) 17.48 uIU/mL (0.36-3.74)
== END 2024-11-06 15:10 | disposition home or self-care (01) ==
LOC: LOS 15:09
PROVIDERS: PCP Nurse Practitioner Family; Visit Provider Family Medicine
DX: E03.9 Hypothyroidism, unspecified (principal)
CPT/HCPCS: 36415; 86376; 84439; 84443

== ENCOUNTER → 2025-01-06 13:57 | Outpatient (CLI) | payer MEDICARE, SELFPAY ==
--- NOTE | 2025-01-06 14:03 | DI.RAD_ITS ---
Exam(s) XR KNEE RT 3V AP,LAT,ELIZABETH EXAM: XR KNEE RT 3V AP,LAT,ELIZABETH CLINICAL HISTORY: swelling, mass behind knee, R KNEE PAIN M25.561. TECHNIQUE: 2D digital imaging was performed of the right knee. Three views obtained. AP, lateral and PA tunnel views were obtained. COMPARISON: There are no priors for comparison. FINDINGS: BONES: No acute fracture is present. No bony destructive lesion is seen. JOINTS: Mild degenerative changes are seen in the medial femoral tibial joint characterized by joint space narrowing and osteophytes. There is a moderate joint effusion present. SOFT TISSUE: Normal. IMPRESSION: 1. There is no soft tissue abnormality posteriorly. If there is concern for a popliteal cyst or soft tissue mass, ultrasound or MRI should be considered for further evaluation. 2. Mild degenerative changes in the right knee. 3. Moderate joint effusion. DATA REPOSITORY: RADIATION DOSE DELIVERED:
== END ==
LOC: DI 13:58
PROVIDERS: PCP Nurse Practitioner Family; Visit Provider Nurse Practitioner Family
DX: M17.11 Unilateral primary osteoarthritis, right knee (principal)
CPT/HCPCS: 73562

== ENCOUNTER 2025-01-06 14:18 | Outpatient (CLI) | payer MEDICARE, SELFPAY ==
[2025-01-06 14:44] LABS: D-Dimer 2028 ng/mlFEU (<500)
== END 2025-01-06 14:19 | disposition home or self-care (01) ==
LOC: LBO 14:18
PROVIDERS: PCP Nurse Practitioner Family; Visit Provider Nurse Practitioner Family
DX: M79.89 Other specified soft tissue disorders (principal)
CPT/HCPCS: 36415; 84443; 85379

== ENCOUNTER → 2025-01-07 12:11 | Outpatient (CLI) | payer MEDICARE, SELFPAY ==
--- NOTE | 2025-01-07 12:55 | DI.US_ITS ---
Exam(s) US LOWER EXTREMITY VENOUS RT EXAM: US LOWER EXTREMITY VENOUS RT CLINICAL HISTORY: elevated d-dimer/rt leg swelling M79.89 TECHNIQUE: Grayscale, color, and doppler imaging of the deep venous system of the right lower extremity was performed. COMPARISON: None FINDINGS: There is no evidence of intraluminal thrombus and there is normal compression and augmentation demonstrated within the common femoral vein, femoral vein, and popliteal vein. In the ipsilateral calf the interrogated veins also exhibit normal compression/ augmentation properties. The ipsilateral saphenofemoral junction is patent. Incidentally noted is a Rueda cyst in the popliteal fossa which measures 5.8 x 1.8 x 4.4 cm. Contains some debris. IMPRESSION: 1. No evidence of DVT in the right lower extremity. Popliteal fossa cyst with measurements as above noted. DATA REPOSITORY:
== END ==
LOC: DI 12:11
PROVIDERS: PCP Nurse Practitioner Family; Visit Provider Nurse Practitioner Family
DX: M79.89 Other specified soft tissue disorders (principal); M17.11 Unilateral primary osteoarthritis, right knee
CPT/HCPCS: 93971

== ENCOUNTER 2025-02-04 01:34 | Outpatient (CLI) | payer MEDICARE, SELFPAY ==
[2025-02-04 15:44] LABS: TSH (W/Ref FT4) 12.19 uIU/mL (0.55-4.78)
== END 2025-02-04 01:35 | disposition home or self-care (01) ==
LOC: LOS 01:34
PROVIDERS: PCP Nurse Practitioner Family; Visit Provider Family Medicine
DX: E03.9 Hypothyroidism, unspecified (principal)
CPT/HCPCS: 36415; 84439; 84443